=== PATIENT | female | born 1930 | race Asian ===

== ENCOUNTER 2016-10-17 19:00 | Emergency (ER) | payer OTHER ==
[2016-10-17 19:22] VITALS: TEMP 97.8; BMI 28.3
[2016-10-17 19:43] LABS: BASOPHIL 0.7 % (0-2.0); EOSINOPHIL 3.7 % (0-4.5); MCH 31.2 pg (25.7-33.7); MCHC 34.4 g/dl (32.0-36.0); MEAN CELL VOLUME 90.6 fl (80-96); MEAN PLT VOLUME 7.5 fl (7.5-11.1); NEUTROPHILS 65.1 % (42.8-82.8); PLATELET COUNT 183 K/MM3 (134-434)
--- NOTE | 2016-10-17 19:48 | PDOC ---
History of Present Illness - General Chief Complaint: Injury Stated Complaint: FALL Time Seen by Provider: 10/17/16 19:12 History Source: Patient, Spouse, Other (daughter) - History of Present Illness Occurred: reports: this afternoon (1330hrs) Pain Location: reports: head (right parietal), other (right rib) Modifying Factors: improves with: None Loss of Consciousness: no loss of consciousness Associated Symptoms (Fall): denies symptoms Past History - Travel Traveled outside of the country in the last 30 days: No Close contact w/someone who was outside of country & ill: No - Past Medical History Allergies/Adverse Reactions: Allergies Allergy/AdvReac Type Severity Reaction Status Date / Time Penicillins Allergy Intermediate Verified 10/17/16 19:22 Home Medications: Ambulatory Orders Fluoxetine HCl [Prozac -] 40 mg PO DAILY 03/29/13 Simvastatin [Zocor -] 20 mg PO HS 03/29/13 Pramipexole Dihydrochloride [Mirapex -] 1.5 mg PO Q4H 07/06/15 Sitagliptin Phosphate [Januvia] 50 mg PO DAILY 07/06/15 Alprazolam [Xanax] 0.5 mg PO PRN 04/29/16 Aspirin [ASA -] 81 mg PO DAILY 04/29/16 Donepezil HCl 5 mg PO DAILY 04/29/16 Metformin HCl 500 mg PO BID 04/29/16 Oxycodone HCl 5 mg PO Q6H PRN 04/29/16 Trazodone HCl [Desyrel -] 50 mg PO HS 04/29/16 Ranolazine [Ranexa -] 500 mg PO BID #60 tab 05/18/16 Metoprolol Succinate [Toprol XL -] 25 mg PO DAILY 10/17/16 Ramipril [Altace] 2.5 mg PO BID 10/17/16 Cardiac Disorders: Yes (Chest pain) CVA: (Non-ruptured cerebral aneurysm 2007, tension headaches) GI Disorders: Yes (GERD, COLONOSCOPY CONSTIPATION) HTN: Yes Hypercholesterolemia: Yes (HYPER LIPIDEMIA) Suicide Attempt (Hx): No - Surgical History Cardiac Surgery: Yes (Stent) Cholecystectomy: Yes - Immunization History Immunization Up to Date: Yes (FLU AND PNA) - Psycho/Social/Smoking Cessation Hx Anxiety: Yes Suicidal Ideation: No Smoking Status: No Smoking History: Never smoked Have you smoked in the past 12 months: No Number of Cigarettes Smoked Daily: 0 Information on smoking cessation initiated: No Hx Alcohol Use: No Drug/Substance Use Hx: No Substance Use Type: None Trauma Specific PMHX - Complaint Specific PMHX Back Injury: No Neck Injury: No Review of Systems - Review of Systems Able to Perform ROS?: Yes Comments:: 10/17/16 19:47 CONSTITUTIONAL: Absent: fever, chills, diaphoresis, generalized weakness, malaise, loss of appetite HEENT: Absent: rhinorrhea, nasal congestion, throat pain, throat swelling, difficulty swallowing, mouth swelling, ear pain, eye pain, visual Changes CARDIOVASCULAR: Absent: chest pain, loss of consciousness, palpitations, irregular heart rate, peripheral edema RESPIRATORY: Absent: cough, shortness of breath, dyspnea with exertion, orthopnea, wheezing, stridor, hemoptysis GASTROINTESTINAL: right lat lower ribs Absent: abdominal pain, abdominal distension, nausea, vomiting, diarrhea, constipation, melena, hematochezia GENITOURINARY: Absent: dysuria, frequency, urgency, hesitancy, hematuria, flank pain, genital pain MUSCULOSKELETAL: Absent: myalgia, arthralgia, joint swelling SKIN: Absent: rash, itching, pallor HEMATOLOGIC/IMMUNOLOGIC: Absent: easy bleeding, easy bruising, lymphadenopathy, frequent infections ENDOCRINE: Absent: unexplained weight gain, unexplained weight loss, heat intolerance, cold intolerance NEUROLOGIC: Right parietal quiñonez Absent: focal weakness or paresthesias, dizziness, seizure, mental status changes, bladder or bowel incontinence PSYCHIATRIC: Absent: anxiety, depression, suicidal or homicidal ideation, hallucinations. Is the patient limited Czech proficient: No *Physical Exam - Vital Signs Last Vital Signs Temp Pulse Resp BP Pulse Ox 97.8 F 64 18 181/71 100 10/17/16 19:18 10/17/16 19:18 10/17/16 19:18 10/17/16 19:18 10/17/16 19:18 - Physical Exam Comments: 10/17/16 19:48 GENERAL: Well developed, well nourished. Awake and alert. No acute distress. HEENT: Normocephalic, atraumatic. PERRLA, EOMI. No conjunctival pallor. Sclera are non- icteric. Moist mucous membranes. Oropharynx is clear. NECK: Supple. Full ROM. No JVD. Carotid pulses 2+ and symmetric, without bruits. No thyromegaly. No lymphadenopathy. CARDIOVASCULAR: Regular rate and rhythm. No murmurs, rubs, or gallops. Distal pulses are 2+ and symmetric. PULMONARY: No evidence of respiratory distress. Lungs clear to auscultation bilaterally. No wheezing, rales or rhonchi. ABDOMINAL: Soft. Non-tender. Non-distended. No rebound or guarding. No organomegaly. Normoactive bowel sounds. MUSCULOSKELETAL Normal range of motion at all joints. No bony deformities or tenderness. No CVA tenderness. EXTREMITIES: No cyanosis. No clubbing. No edema. No calf tenderness. SKIN: Warm and dry. Normal capillary refill. No rashes. No jaundice. NEUROLOGICAL: Alert, awake, appropriate. Cranial nerves 2-12 intact. No deficits to light touch and temperature in face, upper extremities and lower extremities. No motor deficits in the in face, upper extremities and lower extremities. Normoreflexic in the upper and lower extremities. Normal speech. Toes are down- going bilaterally. Gait is normal without ataxia. PSYCHIATRIC: Cooperative. Good eye contact. Appropriate mood and affect. ED Treatment Course - LABORATORY CBC & Chemistry Diagram: 10/17/16 19:29 10/17/16 19:29 Progress Note - Progress Note Progress Note: 85-year-old female presents to her emergency department with her family complaining of right parietal headache and right lateral lower rib pains after she slipped and fell 6 hours ago at home. Patient reports after getting up from the couch she was walking on carpeted floor and fell, striking her head on the wooden floor. Patient denies any loss of consciousness, dizziness, lightheadedness, visual disturbance, blurry vision, neck pains, neck pains, chest pain, shortness of breath, abdominal pains, urinary symptoms: Frequency/ urgency/hesitancy, hematuria, extremity numbness or tingling sensation. Patient' s daughter states she's been walking around for the past 6 hours after the fall. *DC/Admit/Observation/Transfer Diagnosis at time of Disposition: Closed head injury Qualifiers: Encounter type: initial encounter Qualified Code(s): S09.90XA - Unspecified injury of head, initial encounter Contusion of rib Qualifiers: Encounter type: initial encounter Laterality: right Qualified Code(s): S20.211A - Contusion of right front wall of thorax, initial encounter - Discharge Dispostion Disposition: HOME Condition at time of disposition: Stable - Referrals Referrals: STAFF,NOT ON [Primary Care Provider] - Nhan Cao MD [Staff Physician] - - Patient Instructions Printed Discharge Instructions: DI for Closed Head Injury, DI for Rib Contusion Additional Instructions: Increase fluids Take Tylenol as needed for pain Follow-up with your primary care physician this week Return back to the emergency department for any severe/persistent or worsening pain or discomfort.
[2016-10-17 19:59] LABS: INR 1.1 (0.82-1.09); PROTHROMBIN TIME (PATIENT) 12.1 SEC (9.98-11.88)
[2016-10-17 20:09] LABS: ALBUMIN 3.3 g/dl (3.4-5.0); ALK PHOS 83 U/L (45-117); ANION GAP 7 (8-16); BILIRUBIN,TOTAL 0.3 mg/dL (0.2-1.0); CALCIUM 8.8 mg/dL (8.5-10.1); CHOLESTEROL 173 mg/dL (50-200); CO2 31 mmol/L (21-32); CREATININE 0.6 mg/dL (0.55-1.02); GLUCOSE,RANDOM 144 mg/dL (74-106); LDL CHOLESTEROL (ONLY SJRH) 89 mg/dL (5-100); SGOT/AST 32 U/L (15-37); SGPT/ALT 25 U/L (12-78); TOT PROT 7.2 g/dl (6.4-8.2); TROPONIN I 0.02 ng/ml (0.00-0.05)
[2016-10-17] MEDS ORDERED: ACETAMINOPHEN 325 MG TABLET (FP) PO ONE (21:50)
[2016-10-17] MEDS ORDERED: ACETAMINOPHEN 325 MG TABLET (FP) ONE (21:53)
[2016-10-17 21:57] LABS: URINE APPEARANCE CLEAR; URINE BILIRUBIN NEGATIVE (NEGATIVE); URINE BLOOD NEGATIVE (NEGATIVE); URINE COLOR LTYELLOW; URINE GLUCOSE (UA) NEGATIVE (NEGATIVE); URINE KETONE NEGATIVE (NEGATIVE); URINE LEUK ESTERASE TRACE (NEGATIVE); URINE NITRITE NEGATIVE (NEGATIVE); URINE PROTEIN NEGATIVE (NEGATIVE); URINE UROBILINOGEN NEGATIVE E.U./dl (0.2-1.0)
[2016-10-17 22:06] VITALS: BP 156/80; PULSE 62
[2016-10-17 22:25] LABS: URINE RBC 1 /hpf (0-3); URINE WBC 11 /hpf (3-5)
--- NOTE | 2016-10-18 19:59 | EKG ---
Test Reason : Blood Pressure : / mmHG Vent. Rate : 060 BPM Atrial Rate : 060 BPM P-R Int : 204 ms QRS Dur : 140 ms QT Int : 516 ms P-R-T Axes : 000 032 088 degrees QTc Int : 516 ms AV dual-paced rhythm ABNORMAL ECG WHEN COMPARED WITH ECG OF 16-MAY-2016 21:14, NO SIGNIFICANT CHANGE WAS FOUND Confirmed by VINCENT VASQUEZ MD ([id number]) on 10/18/2016 7:58:38 PM Referred By: Confirmed By:VINCENT VASQUEZ MD
== END 2016-10-17 22:05 | disposition home or self-care (01) ==
LOC: JER 19:00 → SUPCPDRO 19:00 → JER 22:05
DX: S09.8XXA Other specified injuries of head, initial encounter (principal); G44.309 Post-traumatic headache, unspecified, not intractable; S20.211A Contusion of right front wall of thorax, initial encounter; W18.39XA Other fall on same level, initial encounter; Y93.01 Activity, walking, marching and hiking; Y92.038 Other place in apartment as the place of occurrence of the external cause; I25.10 Atherosclerotic heart disease of native coronary artery without angina pectoris; I10 Essential (primary) hypertension; Z95.5 Presence of coronary angioplasty implant and graft; E78.00 Pure hypercholesterolemia, unspecified; E78.5 Hyperlipidemia, unspecified
CPT/HCPCS: 36415; 70450-TC; 71010-TC; 71101-TC-RT; 80053; 81003; 81015; 82465; 82550; 82553; 83718; 83721; 84478; 84484; 85025; 85610; 86850; 86900; 86901; 93005; 93010; 99282-25

== ENCOUNTER 2016-12-12 15:00 | Emergency (ER) | payer OTHER ==
[2016-12-12 15:04] VITALS: TEMP 98; BMI 26.5
[2016-12-12 16:20] LABS: BASOPHIL 0.7 % (0-2.0); MCH 30.5 pg (25.7-33.7); MEAN CELL VOLUME 89.8 fl (80-96); MEAN PLT VOLUME 7.2 fl (7.5-11.1); NEUTROPHILS 58.6 % (42.8-82.8); PLATELET COUNT 162 K/MM3 (134-434); RDW 13.4 % (11.6-15.6); WHITE BLOOD COUNT 5.3 K/mm3 (4.0-10.0)
[2016-12-12 16:36] LABS: INR 1.15 (0.82-1.09); PROTHROMBIN TIME (PATIENT) 12.7 SEC (9.98-11.88)
[2016-12-12 16:44] LABS: ALBUMIN 3.4 g/dl (3.4-5.0); ANION GAP 10 (8-16); CALCIUM 8.9 mg/dL (8.5-10.1); CO2 28 mmol/L (21-32); COCKROFT - GAULT 62.1095; CREATININE 0.7 mg/dL (0.55-1.02); GLUCOSE,RANDOM 215 mg/dL (74-106); MAGNESIUM 1.7 mg/dL (1.8-2.4); SGOT/AST 16 U/L (15-37); SGPT/ALT 17 U/L (12-78)
[2016-12-12 16:48] LABS: ALK PHOS 67 U/L (45-117); BILIRUBIN,TOTAL 0.3 mg/dL (0.2-1.0); TOT PROT 7.2 g/dl (6.4-8.2); TROPONIN I < 0.02 ng/ml (0.00-0.05)
--- NOTE | 2016-12-12 17:12 | PDOC ---
History of Present Illness - General Chief Complaint: Palpitations Stated Complaint: DIFF BREATHING/PALPITATIONS Time Seen by Provider: 12/12/16 15:49 - History of Present Illness Initial Comments: 12/12/16 17:06 CHIEF COMPLAINT: palpitations, SOB HISTORY OF PRESENT ILLNESS: 86 yo F with hx of cerebral aneurysm (non ruptured 2006), s/p stents and pacemaker, NIDDM, GERD, HTN , HLD, anxiety, Parkinsons, s/ p cholecystectomy presents to ED with palpitations and SOB this morning. She denies any chest pain, cough, fever, chills, nausea, vomiting, diarrhea, or urinary symptoms. No recent travel or sick contacts. PAST MEDICAL HISTORY: as per HPI FAMILY HISTORY: Denies SOCIAL HISTORY: Denies tobacco, alcohol, illicit drug use. SURGICAL HISTORY: Denies ALLERGIES: PCN REVIEW OF SYSTEMS General/Constitutional: Denies fever or chills. Denies weakness, weight change. HEENT: Denies change in vision. Denies ear pain or discharge. Denies sore throat. Cardiovascular: Palpitations earlier today, none now. Denies chest pain or shortness of breath. Respiratory: SOB. Denies cough, wheezing, or hemoptysis. Gastrointestinal: Denies nausea, vomiting, diarrhea or constipation. Denies rectal bleeding. Genitourinary: Denies dysuria, frequency, or change in urination. Musculoskeletal: Denies joint or muscle swelling or pain. Denies neck or back pain. Skin and breasts: Denies rash or easy bruising. Neurologic: Denies headache, vertigo, loss of consciousness, or loss of sensation. PHYSICAL EXAM General Appearance: Well-appearing, appropriately dressed. No apparent distress. HEENT: EOMI, PERRLA, normal ENT inspection, normal voice, TMs normal, pharynx normal. No conjunctival pallor. No photophobia, scleral icterus. Neck: Supple. Trachea midline. No tenderness, rigidity, carotid bruit, stridor , lymphadenopathy, or thyromegaly. Respiratory/Chest: Lungs CTAB. No shortness of breath, chest tenderness, respiratory distress, accessory muscle use. No crackles, rales, rhonchi, stridor , wheezing, dullness Cardiovascular: RRR. S1, S2. No JVD, murmur, bradycardia, tachycardia. Vascular Pulses: Dorsalis-Pedis (R): 2+, Dorsalis-Pedis (L): 2+ Gastrointestinal/Abdominal: Normal bowel sounds. Abdomen soft, non-distended. No tenderness or rebound tenderness. No organomegaly, pulsatile mass, guarding , hernia, hepatomegaly, splenomegaly. Musculoskeletal/Extremities: Normal inspection. FROM of all extremities, normal capillary refill. Pelvis Stable. No CVA tenderness. No tenderness to extremities, pedal edema, swelling, erythema or deformity. Integumentary: Appropriate color, dry, warm. No cyanosis, erythema, jaundice or rash Neurologic: measurement superintendent II-XII intact. Fully oriented, alert. Appropriate mood/affect. Motor strength 5/5. No appreciable EOM palsy, facial droop or sensory deficit. 12/12/16 17:35 12/12/16 17:36 12/12/16 17:41 Past History - Past Medical History Allergies/Adverse Reactions: Allergies Allergy/AdvReac Type Severity Reaction Status Date / Time Penicillins Allergy Intermediate Verified 12/12/16 15:01 Home Medications: Ambulatory Orders Fluoxetine HCl [Prozac -] 40 mg PO DAILY 03/29/13 Simvastatin [Zocor -] 20 mg PO HS 03/29/13 Pramipexole Dihydrochloride [Mirapex -] 1.5 mg PO Q4H 07/06/15 Sitagliptin Phosphate [Januvia] 50 mg PO DAILY 07/06/15 Alprazolam [Xanax] 0.5 mg PO PRN PRN 04/29/16 Aspirin [ASA -] 81 mg PO DAILY 04/29/16 Donepezil HCl 5 mg PO DAILY 04/29/16 Metformin HCl 500 mg PO BID 04/29/16 Oxycodone HCl 5 mg PO Q6H PRN 04/29/16 Trazodone HCl [Desyrel -] 50 mg PO HS 04/29/16 Ranolazine [Ranexa -] 500 mg PO BID #60 tab 05/18/16 Metoprolol Succinate [Toprol XL -] 25 mg PO DAILY 10/17/16 Bisacodyl [Dulcolax] 5 mg PO PRN 12/12/16 Esomeprazole Mag Trihydrate [Nexium Packets] 40 mg PO PRN PRN 12/12/16 Mirtazapine [Remeron -] 15 mg PO HS 12/12/16 Cardiac Disorders: Yes (Chest pain) CVA: (Non-ruptured cerebral aneurysm 2006, tension headaches) GI Disorders: Yes (GERD, COLONOSCOPY CONSTIPATION) HTN: Yes Hypercholesterolemia: Yes Suicide Attempt (Hx): No - Surgical History Abdominal Surgery: Yes Cardiac Surgery: Yes (Stent, PM.) Cholecystectomy: Yes - Immunization History Immunization Up to Date: Yes (FLU AND PNA) - Psycho/Social/Smoking Cessation Hx Anxiety: No Suicidal Ideation: No Smoking Status: No Smoking History: Never smoked Have you smoked in the past 12 months: No Number of Cigarettes Smoked Daily: 0 Hx Alcohol Use: No Drug/Substance Use Hx: No Substance Use Type: None *Physical Exam - Vital Signs Last Vital Signs Temp Pulse Resp BP Pulse Ox 98 F 63 19 186/82 95 12/12/16 15:01 12/12/16 18:29 12/12/16 18:29 12/12/16 18:29 12/12/16 18:29 Heart Score/ECG Review - History History: Moderately suspicious - Electrocardiogram EKG: Non specific repolarization disturbance - Age Age: >/= 65 - Risk Factors Risk Factors Heart Score: Yes Hx Hypercholesterolemia, Yes Hx Hypertension, Yes Hx Diabetes Based on the list above the patient has:: >/=3 risk factors or Hx atherosclerotic disease - Troponin Troponin: </= normal limit - Score Heart Score - Total: 6 ED Treatment Course - LABORATORY CBC & Chemistry Diagram: 12/12/16 16:05 12/12/16 16:05 - ADDITIONAL ORDERS Additional order review: 12/12/16 16:05 RBC 4.56 MCV 89.8 MCHC 34.0 RDW 13.4 MPV 7.2 L Neutrophils % 58.6 Lymphocytes % 29.4 D Monocytes % 6.3 Eosinophils % 5.0 H Basophils % 0.7 - Medications Given in the ED: ED Medications Discontinued Medications Generic Name Dose Route Start Last Admin Trade Name Freq PRN Reason Stop Dose Admin Sodium Chloride 1,000 ml 12/12/16 17:26 12/12/16 17:40 Normal Saline - IV 12/12/16 17:27 1,000 ml ONCE ONE Administration Medical Decision Making - Medical Decision Making 12/12/16 17:41 86 yo F with hx of cerebral aneurysm (non ruptured 2006), s/p stents and pacemaker, NIDDM, GERD, HTN , HLD, anxiety, Parkinsons, s/p cholecystectomy presents to ED with palpitations and SOB this morning. -EKG, CXR -CBC, CMP, Mg, PT/INR, cardiac profile -O2 EKG unchanged from prior. No acute findings on CXR. Patient requests to leave. Given patient's significant cardiac history, advised patient and daughter to stay for observation and further evaluation of SOB. Patient refuses to stay and signed out AMA. *DC/Admit/Observation/Transfer Diagnosis at time of Disposition: AMA - Signed out against medical advice - Discharge Dispostion Disposition: AGAINST MEDICAL ADVICE Condition at time of disposition: Good - Referrals Referrals: Carlos Sepulveda [Primary Care Provider] -
[2016-12-12] MEDS ORDERED: SODIUM CHLORIDE 0.9% 1000 ML INFUS.BAG IV ONE (17:26)
--- NOTE | 2016-12-12 18:14 | PDOC ---
*Physical Exam - Vital Signs Last Vital Signs Temp Pulse Resp BP Pulse Ox 98 F 65 18 146/74 95 12/12/16 15:01 12/12/16 15:01 12/12/16 15:01 12/12/16 15:01 12/12/16 15:01 ED Treatment Course - LABORATORY CBC & Chemistry Diagram: 12/12/16 16:05 12/12/16 16:05 - ADDITIONAL ORDERS Additional order review: Laboratory Results 12/12/16 12/12/16 16:05 16:05 INR 1.15 H Sodium 135 L Potassium 4.2 Chloride 97 L Carbon Dioxide 28 Anion Gap 10 BUN 14 D Creatinine 0.7 Creat Clearance w eGFR > 60 Random Glucose 215 H D Calcium 8.9 Magnesium 1.7 L Total Bilirubin 0.3 AST 16 D ALT 17 D Alkaline Phosphatase 67 Creatine Kinase 47 Troponin I < 0.02 Total Protein 7.2 Albumin 3.4 12/12/16 16:05 RBC 4.56 MCV 89.8 MCHC 34.0 RDW 13.4 MPV 7.2 L Neutrophils % 58.6 Lymphocytes % 29.4 D Monocytes % 6.3 Eosinophils % 5.0 H Basophils % 0.7 - Medications Given in the ED: ED Medications Discontinued Medications Generic Name Dose Route Start Last Admin Trade Name Freq PRN Reason Stop Dose Admin Sodium Chloride 1,000 ml 12/12/16 17:26 12/12/16 17:40 Normal Saline - IV 12/12/16 17:27 1,000 ml ONCE ONE Administration Medical Decision Making - Medical Decision Making 12/12/16 18:11 86 yo F h/o cerebral aneurysm pt presents to the ER with a complaint of palpitations and shortness of breath No fevers or chills No chest pain 12/12/16 18:12 12/12/16 18:13 Laboratory Tests 12/12/16 12/12/16 16:05 16:05 WBC 5.3 Hgb 13.9 Hct 41.0 BUN 14 D Creatinine 0.7 Creatine Kinase 47 Troponin I < 0.02 CXR: no consolidation, no effusion, Would like to place this patient on observation Pt refusing to stay on observation she is leaving the ER AMA this was discussed with her by JOANA Vaz in front of her daughter clinical impression: palpitations *DC/Admit/Observation/Transfer Diagnosis at time of Disposition: AMA - Signed out against medical advice - Discharge Dispostion Disposition: AGAINST MEDICAL ADVICE Condition at time of disposition: Good - Referrals Referrals: Carlos Sepulveda [Primary Care Provider] - - Patient Instructions - Post Discharge Activity
[2016-12-12 18:30] VITALS: BP 186/82; PULSE 63
--- NOTE | 2016-12-14 00:07 | EKG ---
Test Reason : Blood Pressure : / mmHG Vent. Rate : 066 BPM Atrial Rate : 066 BPM P-R Int : 162 ms QRS Dur : 148 ms QT Int : 500 ms P-R-T Axes : 071 044 080 degrees QTc Int : 524 ms Atrial-sensed ventricular-paced rhythm ABNORMAL ECG WHEN COMPARED WITH ECG OF 17-OCT-2016 21:26, VENT. RATE HAS INCREASED BY 6 BPM Confirmed by STEVE SONI MD ([id number]) on 12/14/2016 12:06:51 AM Referred By: Confirmed By:STEVE SONI MD
== END 2016-12-12 18:30 | disposition left against medical advice (07) ==
LOC: SUPCPDRO 15:00 → JER 15:00
DX: R00.2 Palpitations (principal); E11.9 Type 2 diabetes mellitus without complications; Z79.84 Long term (current) use of oral hypoglycemic drugs; E78.00 Pure hypercholesterolemia, unspecified; I25.10 Atherosclerotic heart disease of native coronary artery without angina pectoris; I10 Essential (primary) hypertension; Z95.5 Presence of coronary angioplasty implant and graft; Z95.0 Presence of cardiac pacemaker; K21.9 Gastro-esophageal reflux disease without esophagitis; G20 Parkinson's disease; I67.1 Cerebral aneurysm, nonruptured
CPT/HCPCS: 36415; 71020-TC; 80053; 82550; 83735; 84484; 85025; 85610; 93005; 93010; 99284-25

== ENCOUNTER 2017-06-24 13:01 | Observation (INO) | payer OTHER ==
--- NOTE | 2017-06-24 14:21 | PDOC ---
History of Present Illness - History of Present Illness Initial Comments: 06/24/17 14:41 The patient is a 86 year old female, with a significant past medical history of cerebral aneurysm (nonruptured 2006), s/p stents and pacemaker, NIDDM, GERD, HTN , HLD, anxiety, Parkinson's, s/p cholecystectomy, who presents to the emergency department with 10 day complaint of generalized weakness, fatigue, intermittent diaphoresis, and mild nausea. The patient states she has been unable to get good rest because she feels sick. She reports seeing her PMD, Dr. Sepulveda, a week ago for similar symptoms, however, states she feels much worse today than the previous few days. She reports feeling feverish, but denies fever. She reports feeling intermittently sweaty. She denies recent sick contacts. She denies chest pain, shortness of breath, headache and dizziness. She denies fever, chills, vomit, diarrhea and constipation. She denies dysuria, frequency, urgency and hematuria. Allergies: penicillins Past surgical history: cholecystectomy, pacemaker. Social history: denies toxic habits, lives with son and [id number] PCP: Dr. Sepulveda <Breann Anaya - Last Filed: 06/24/17 18:17> <Darion Sosa - Last Filed: 06/24/17 19:04> - General Chief Complaint: Shortness of Breath Stated Complaint: Shortness of Breath Time Seen by Provider: 06/24/17 13:16 Past History <Breann Anaya - Last Filed: 06/24/17 18:17> - Past Medical History Cardiac Disorders: Yes (Chest pain) CVA: (Non-ruptured cerebral aneurysm 2007, tension headaches) COPD: No Diabetes: Yes GI Disorders: Yes (GERD, COLONOSCOPY CONSTIPATION) HTN: Yes Hypercholesterolemia: Yes - Surgical History Abdominal Surgery: Yes Cardiac Surgery: Yes (Stent, PM.) Cholecystectomy: Yes - Immunization History Immunization Up to Date: Yes (FLU AND PNA) - Suicide/Smoking/Psychosocial Hx Smoking Status: No Smoking History: Never smoked Have you smoked in the past 12 months: No Number of Cigarettes Smoked Daily: 0 Hx Alcohol Use: No Drug/Substance Use Hx: No Substance Use Type: None <Darion Sosa - Last Filed: 06/24/17 19:04> - Past Medical History Allergies/Adverse Reactions: Allergies Allergy/AdvReac Type Severity Reaction Status Date / Time Penicillins Allergy Intermediate Verified 12/12/16 15:01 Home Medications: Ambulatory Orders Fluoxetine HCl [Prozac -] 40 mg PO DAILY 03/29/13 Simvastatin [Zocor -] 20 mg PO HS 03/29/13 Pramipexole Dihydrochloride [Mirapex -] 1.5 mg PO Q4H 07/06/15 Sitagliptin Phosphate [Januvia] 50 mg PO DAILY 07/06/15 Alprazolam [Xanax] 0.5 mg PO PRN PRN 04/29/16 Aspirin [ASA -] 81 mg PO DAILY 04/29/16 Donepezil HCl 5 mg PO DAILY 04/29/16 Metformin HCl 500 mg PO BID 04/29/16 Oxycodone HCl 5 mg PO Q6H PRN 04/29/16 Ranolazine [Ranexa -] 500 mg PO BID #60 tab 05/18/16 Metoprolol Succinate [Toprol XL -] 25 mg PO DAILY 10/17/16 Bisacodyl [Dulcolax] 5 mg PO PRN 12/12/16 Esomeprazole Mag Trihydrate [Nexium Packets] 40 mg PO PRN PRN 12/12/16 Mirtazapine [Remeron -] 15 mg PO HS 12/12/16 Review of Systems - Review of Systems Constitutional: No: Chills, Fever Respiratory: Yes: Cough. No: Shortness of Breath Cardiac (ROS): Yes: Lightheadedness. No: Chest Pain, Edema, Syncope ABD/GI: Yes: Nausea. No: Diarrhea, Vomiting : No: Dysuria, Frequency Neurological: No: Headache All Other Systems: Reviewed and Negative <Darion Sosa - Last Filed: 06/24/17 19:04> *Physical Exam - Vital Signs Last Vital Signs Temp Pulse Resp BP Pulse Ox 97.5 F L 69 18 151/67 95 06/24/17 13:18 06/24/17 13:18 06/24/17 13:18 06/24/17 13:18 06/24/17 13:50 - Physical Exam Comments: 06/24/17 14:42 GENERAL: The patient is awake, alert, and fully oriented, in no acute distress. HEAD: Normal with no signs of trauma. EYES: Pupils equal, round and reactive to light, extraocular movements intact, sclera anicteric, conjunctiva clear with no pallor. ENT: Ears normal, nares patent, oropharynx clear without exudates. Moist mucous membranes. NECK: Normal range of motion, supple without lymphadenopathy, JVD, or masses. LUNGS: Breath sounds equal, clear to auscultation bilaterally. No wheeze/ crackles. HEART: (+) 2/6 systolic ejection murmur. Regular rate and rhythm, normal S1 and S2 without rub. ABDOMEN: (+) suprapubic discomfort on palpation. Soft/nondistended. BS wnl. No guarding or rebound. No palpable masses. No hepatosplenomegaly. EXTREMITIES: Normal range of motion, no edema. No clubbing or cyanosis. No cords, erythema, or tenderness. NEUROLOGICAL: Cranial nerves II through XII grossly intact. Normal speech, normal gait. PSYCH: Normal mood, normal affect. SKIN: Warm, Dry, normal turgor, no rashes or lesions noted. <Breann Anaya - Last Filed: 06/24/17 18:17> - Vital Signs Last Vital Signs Temp Pulse Resp BP Pulse Ox 97.5 F L 69 18 151/67 95 06/24/17 13:18 06/24/17 13:18 06/24/17 13:18 06/24/17 13:18 06/24/17 13:50 <Darion Sosa - Last Filed: 06/24/17 19:04> Heart Score/ECG Review - ECG Intrepretation Comment:: 06/24/17 14:49 EKG was read by Dr. Sosa at 14:35 Impression: AV paced rhythm at 66 bpm. unchanged compared to EKG from 10/17/16. <Breann Anaya - Last Filed: 06/24/17 18:17> ED Treatment Course - LABORATORY CBC & Chemistry Diagram: 06/24/17 14:18 06/24/17 14:18 - ADDITIONAL ORDERS Additional order review: Laboratory Results 06/24/17 14:18 Magnesium Cancelled Creatine Kinase Cancelled Troponin I Cancelled B-Natriuretic Peptide Cancelled 06/24/17 14:18 RBC 4.45 MCV 90.0 MCHC 34.3 RDW 13.7 MPV 7.1 L Neutrophils % 61.0 Lymphocytes % 27.7 Monocytes % 7.0 Eosinophils % 3.5 Basophils % 0.8 - RADIOLOGY Radiograph Interpretation: EXAM#: TYPE/EXAM: RESULT: [id number] RAD/CHEST X-RAY PORTABLE* HISTORY PROVIDED: Wheezing. A single frontal portable projection of the chest at 1:53 PM is submitted. The study is limited due to patient rotation. The heart size is enlarged. A dual-chamber left-sided pacemaker is present. There are some increased interstitial markings diffusely suspicious for a mild degree of acute congestion. There may be a small amount of right pleural fluid as well. IMPRESSION: Probable mild congestion Reported By: Bart Dong MD 06/24/17 4025 <Breann Anaya - Last Filed: 06/24/17 18:17> - LABORATORY CBC & Chemistry Diagram: 06/24/17 14:18 06/24/17 14:18 - RADIOLOGY Radiology Studies Ordered: Category Date Time Status CHEST X-RAY PORTABLE* [RAD] Stat Radiology 06/24/17 13:50 Ordered <Darion Sosa - Last Filed: 06/24/17 19:04> Medical Decision Making - Medical Decision Making 06/24/17 14:31 A portion of this note was documented by scribe services under my direction. I have reviewed the details of the note, within reason, and agree with the documentation with the following case summary and management plan written by me. 86-year-old female with history of hypertension, diabetes, high cholesterol, heart disease status post pacemaker presents with 10 days of feeling generally unwell, worsened today. No specific complaints of headache or URI symptoms, slight cough with nausea but no vomiting or diarrhea, baseline constipation, no urinary complaints, no focal neurological complaints. Subjective fevers but no measured fevers, some chills and body aches. Today, patient expressed concern that she was feeling more unwell so they present to the emergency department. Vital signs as noted and within normal limits Generally well-appearing, seated in stretcher speaking full sentences Atraumatic Lungs are clear, heart is regular with systolic murmur Mild suprapubic discomfort Neurologically intact 86-year-old female with generalized weakness for over 1 week, apparently worsened today. Question infectious process, rule out influenza or UTI, has cardiac history so rule out acute process, rule out metabolic disarray. Labs, urinalysis EKG, chest x-ray IV fluids, check influenza Reassess 06/24/17 15:57 Elevated lactate 2.4, began IV fluids resuscitation. Otherwise no leukocytosis and normal differential, chemistries are within normal limits, troponin is negative. Awaiting chest x-ray read, awaiting urinalysis. Will observe in hospital given the elevated lactate. 06/24/17 19:04 UA negative. Repeat lactate remains 2.1 after 1L NS. Will proceed with obs placement. Signout given to PRODUCT MG[employer] DEV MANAGER [employer]. 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
[2017-06-24 14:26] LABS: BASOPHIL 0.8 % (0-2.0); EOSINOPHIL 3.5 % (0-4.5); MCH 30.8 pg (25.7-33.7); MCHC 34.3 g/dl (32.0-36.0); MEAN PLT VOLUME 7.1 fl (7.5-11.1); PLATELET COUNT 181 K/MM3 (134-434); RDW 13.7 % (11.6-15.6); WHITE BLOOD COUNT 6.7 K/mm3 (4.0-10.0)
[2017-06-24 14:53] LABS: ALBUMIN 3.5 g/dl (3.4-5.0); ANION GAP 14 (8-16); BILIRUBIN,TOTAL 0.3 mg/dL (0.2-1.0); CALCIUM 8.8 mg/dL (8.5-10.1); CO2 23 mmol/L (21-32); CREATININE 0.8 mg/dL (0.55-1.02); GLUCOSE,RANDOM 270 mg/dL (74-106); SGPT/ALT 26 U/L (12-78); TOT PROT 7.2 g/dl (6.4-8.2)
[2017-06-24 14:55] LABS: ALK PHOS 74 U/L (45-117); CPK 72 IU/L (26-192); TROPONIN I < 0.02 ng/ml (0.00-0.05)
[2017-06-24] MEDS ORDERED: SODIUM CHLORIDE 500 ML IV ONE (15:07)
[2017-06-24 15:36] LABS: MAGNESIUM 1.8 mg/dL (1.8-2.4); SGOT/AST 25 U/L (15-37)
--- NOTE | 2017-06-24 16:30 | EKG ---
Test Reason : Blood Pressure : / mmHG Vent. Rate : 066 BPM Atrial Rate : 066 BPM P-R Int : 174 ms QRS Dur : 142 ms QT Int : 512 ms P-R-T Axes : -11 022 072 degrees QTc Int : 536 ms Atrial-sensed ventricular-paced rhythm ABNORMAL ECG WHEN COMPARED WITH ECG OF 12-DEC-2016 15:14, NO SIGNIFICANT CHANGE WAS FOUND Confirmed by STEVE SONI MD ([id number]) on 06/24/2017 4:29:33 PM Referred By: Confirmed By:STEVE SONI MD
[2017-06-24] MEDS ORDERED: SODIUM CHLORIDE 500 ML IV STA (16:49)
[2017-06-24 17:05] LABS: URINE APPEARANCE SLCLOUDY; URINE BILIRUBIN NEGATIVE (NEGATIVE); URINE BLOOD NEGATIVE (NEGATIVE); URINE COLOR YELLOW; URINE GLUCOSE (UA) 3+ (NEGATIVE); URINE KETONE NEGATIVE (NEGATIVE); URINE NITRITE NEGATIVE (NEGATIVE); URINE PROTEIN NEGATIVE (NEGATIVE); URINE UROBILINOGEN NEGATIVE mg/dL (0.2-1.0)
[2017-06-24] MEDS ORDERED: METOPROLOL TARTRATE 25 MG TABLET (FP) PO ONE (18:12)
[2017-06-24] MEDS ORDERED: ALPRAZolam 0.25 MG TABLET PO PRN (20:58)
[2017-06-24] MEDS ORDERED: BISACODYL 5 MG TABLET.DR (FP) PO PRN (21:00)
--- NOTE | 2017-06-24 21:01 | HP ---
CHIEF COMPLAINT: GENERALIZED MALAISE PCP: C[facility] HISTORY OF PRESENT ILLNESS: This is an 86 year old female with a significant past medical history of HTN, CAD s/p stents, NIDDM, Anxiety, Parkinson's disease who presented to the ED with a complaint of not feeling well. Reports subjective fever and chills. Denies specific pain. + intermittent nausea, no vomiting. Last BM was today; small and hard. ER course was notable for: (1) WBC 6.7 (2) BNP 590.26, CXR with mild congestion (3) lactic acid 2.4 --> 2.1 Recent Travel: pt denies PAST MEDICAL HISTORY: cerebral aneurysm HTN HLD CAD s/p stents NIDDM GERD anxiety PD PAST SURGICAL HISTORY: cholecystectomy PPM Social History: Smoking: pt denies Alcohol: pt denies Drugs: pt denies Family History: unknown Allergies Penicillins Allergy (Intermediate, Verified 12/12/16 15:01) HOME MEDICATIONS: 3 Medication Instructions Recorded Fluoxetine HCl [Prozac -] 40 mg PO DAILY 03/29/13 Simvastatin [Zocor -] 20 mg PO HS 03/29/13 Pramipexole Dihydrochloride 1.5 mg PO Q4H 07/06/15 [Mirapex -] Sitagliptin Phosphate [Januvia] 50 mg PO DAILY 07/06/15 Alprazolam [Xanax] 0.5 mg PO PRN PRN 04/29/16 Aspirin [ASA -] 81 mg PO DAILY 04/29/16 Donepezil HCl 5 mg PO DAILY 04/29/16 Metformin HCl 500 mg PO BID 04/29/16 Oxycodone HCl 5 mg PO Q6H PRN 04/29/16 Ranolazine [Ranexa -] 500 mg PO BID #60 tab 05/18/16 Metoprolol Succinate [Toprol XL -] 25 mg PO DAILY 10/17/16 Bisacodyl [Dulcolax] 5 mg PO PRN 12/12/16 Esomeprazole Mag Trihydrate 40 mg PO PRN PRN 12/12/16 [Nexium Packets] Mirtazapine [Remeron -] 15 mg PO HS 12/12/16 REVIEW OF SYSTEMS CONSTITUTIONAL: Present: fever, chills, generalized weakness, malaise Absent: diaphoresis, loss of appetite, weight change HEENT: Absent: rhinorrhea, nasal congestion, throat pain, throat swelling, difficulty swallowing, mouth swelling, ear pain, eye pain, visual changes CARDIOVASCULAR: Absent: chest pain, syncope, palpitations, irregular heart rate, lightheadedness , peripheral edema RESPIRATORY: Absent: cough, shortness of breath, dyspnea with exertion, orthopnea, wheezing, stridor, hemoptysis GASTROINTESTINAL: Present: nausea Absent: abdominal pain, abdominal distension, vomiting, diarrhea, constipation, melena, hematochezia GENITOURINARY: Absent: dysuria, frequency, urgency, hesitancy, hematuria, flank pain, genital pain MUSCULOSKELETAL: Absent: myalgia, arthralgia, joint swelling, back pain, neck pain SKIN: Absent: rash, itching, pallor HEMATOLOGIC/IMMUNOLOGIC: Absent: easy bleeding, easy bruising, lymphadenopathy, frequent infections ENDOCRINE: Absent: unexplained weight gain, unexplained weight loss, heat intolerance, cold intolerance NEUROLOGIC: Absent: headache, focal weakness or paresthesias, dizziness, unsteady gait, seizure, mental status changes, bladder or bowel incontinence PSYCHIATRIC: Absent: anxiety, depression, suicidal or homicidal ideation, hallucinations. PHYSICAL EXAMINATION Vital Signs - 24 hr 3 06/24/17 06/24/17 06/24/17 13:18 13:50 15:32 18:10 Temperature 97.5 F L 97.5 F L 98.2 F Pulse Rate 69 Pulse Rate [ 69 69 Apical] Respiratory 18 18 18 Rate Blood Pressure 151/67 Blood Pressure 157/82 183/82 [Left Arm] O2 Sat by Pulse 97 95 97 97 Oximetry (%) GENERAL: Awake, alert, and fully oriented, mildly anxious. HEAD: Normal with no signs of trauma. EYES: Pupils equal, round and reactive to light, extraocular movements intact, sclera anicteric, conjunctiva clear. No lid lag. EARS, NOSE, THROAT: Ears normal, nares patent, oropharynx clear without exudates. Moist mucous membranes. NECK: Normal range of motion, supple without lymphadenopathy, JVD, or masses. LUNGS: Breath sounds equal, clear to auscultation bilaterally. No wheezes, and no crackles. No accessory muscle use. HEART: Regular rate and rhythm, normal S1 and S2 without murmur, rub or gallop. ABDOMEN: Soft, nontender, not distended, normoactive bowel sounds, no guarding, no rebound, no masses. No hepatomegaly or splenomegaly. MUSCULOSKELETAL: Normal range of motion at all joints. No bony deformities or tenderness. No CVA tenderness. UPPER EXTREMITIES: 2+ pulses, warm, well-perfused. No cyanosis. No clubbing. No peripheral edema. LOWER EXTREMITIES: 2+ pulses, warm, well-perfused. No calf tenderness. No peripheral edema. NEUROLOGICAL: Cranial nerves II-XII intact. Normal speech. Normal gait. PSYCHIATRIC: Cooperative. Good eye contact. Appropriate mood and affect. SKIN: Warm, dry, normal turgor, no rashes or lesions noted, normal capillary refill. Laboratory Results - last 24 hr 3 06/24/17 06/24/17 06/24/17 14:18 14:18 14:18 WBC 6.7 RBC 4.45 Hgb 13.7 Hct 40.0 MCV 90.0 MCH 30.8 MCHC 34.3 RDW 13.7 Plt Count 181 MPV 7.1 L Neutrophils % 61.0 Lymphocytes % 27.7 Monocytes % 7.0 Eosinophils % 3.5 Basophils % 0.8 Sodium Potassium Chloride Carbon Dioxide Anion Gap BUN Creatinine Creat Clearance w eGFR Random Glucose Lactic Acid 2.4 H* Calcium Magnesium Cancelled Total Bilirubin AST ALT Alkaline Phosphatase Creatine Kinase Cancelled Troponin I Cancelled B-Natriuretic Peptide Cancelled Total Protein Albumin Urine Color Urine Appearance Urine pH Ur Specific [place] Urine Protein Urine Glucose (UA) Urine Ketones Urine Blood Urine Nitrite Urine Bilirubin Urine Urobilinogen 3 06/24/17 06/24/17 06/24/17 14:18 16:30 17:35 WBC RBC Hgb Hct MCV MCH MCHC RDW Plt Count MPV Neutrophils % Lymphocytes % Monocytes % Eosinophils % Basophils % Sodium 134 L Potassium 4.4 Chloride 97 L Carbon Dioxide 23 Anion Gap 14 BUN 11 D Creatinine 0.8 Creat Clearance w eGFR > 60 Random Glucose 270 H D Lactic Acid 2.1 H* Calcium 8.8 Magnesium 1.8 Total Bilirubin 0.3 AST 25 D ALT 26 D Alkaline Phosphatase 74 Creatine Kinase 72 Troponin I < 0.02 B-Natriuretic Peptide 590.26 H Total Protein 7.2 Albumin 3.5 Urine Color Yellow Urine Appearance Slcloudy Urine pH 5.0 D Ur Specific [place] 1.022 Urine Protein Negative Urine Glucose (UA) 3+ H Urine Ketones Negative Urine Blood Negative Urine Nitrite Negative Urine Bilirubin Negative Urine Urobilinogen Negative CXR cardiomegaly probable mild congestion ECG Atrial-sensed ventricular-paced rhythm Vent rate 66 QTC 536 ABNORMAL ECG WHEN COMPARED WITH ECG OF 12-DEC-2016 15:14, NO SIGNIFICANT CHANGE WAS FOUND ASSESSMENT/PLAN: 86yF with PMH cerebral aneurysm, HTN, HLD, CAD s/p stents, NIDDM, Parkinson's disease, GERD, anxiety presented to the ED with generalized weakness, malaise. She was found to have elevated lactic acid and was admitted for same. Lactic acidosis - likely type B due to metformin - hold metformin, repeat in AM - hold further fluids given CXR report and pt appears euvolemic Constipation - start miralax daily - FUA in am if no BM HTN/HLD/CAD - cont home meds: ASA, toprol, ranexa, zocor changed to formulary lipitor dementia with depression and anxiety - cont aricept, prozac, remeron and xanax Parkinson's disease - cont mirapex DVT PPX - chemoprophylaxis not indicated as expected LOS <48h FEN - tolerating po - bmp in am - diabetic/low sodium diet as ordered. Dispo: Pt currently requires inpatient observation for management of her emergent condition. Visit type - Emergency Visit Emergency Visit: Yes ED Registration Date: 06/24/17 Care time: The patient presented to the Emergency Department on the above date and was hospitalized for further evaluation of their emergent condition. - New Patient This patient is new to me today: Yes Date on this admission: 06/24/17 - Critical Care Critical Care patient: No
[2017-06-24] MEDS: RANOLAZINE E.R. 500 MG TABLET (FP) PO SCH (21:20)
[2017-06-24 21:24] LABS: URINE LEUK ESTERASE Negative (NEGATIVE)
[2017-06-24] MEDS ORDERED: MIRTAZAPINE 15 MG TABLET (FP) PO SCH (22:00)
[2017-06-24] MEDS ORDERED: ATORVASTATIN CA 10 MG TABLET (FP) PO SCH (22:00)
[2017-06-24] MEDS ORDERED: POLYETHYLENE GLYCOL 3350 119 GM BTL PO SCH (22:00)
[2017-06-24] MEDS: PRAMIPEXOLE DIHYDROCHLORIDE 1.5 MG TABLET PO SCH (22:04)
[2017-06-24] MEDS: INSULIN SLIDING SCALE (NOVOLOG) 1 VIAL SQ SCH (22:06)
[2017-06-25 05:04] VITALS: BMI 30.9
[2017-06-25] MEDS: PRAMIPEXOLE DIHYDROCHLORIDE 1.5 MG TABLET PO SCH ×3 (05:51→14:15)
[2017-06-25] MEDS: INSULIN SLIDING SCALE (NOVOLOG) 1 VIAL SQ SCH ×2 (06:02→11:49)
[2017-06-25] MEDS ORDERED: sitaGLIPtin PHOSPHATE 50 MG TABLET PO SCH (07:00)
[2017-06-25 07:42] LABS: BASOPHIL 0.8 % (0-2.0); EOSINOPHIL 4.2 % (0-4.5); MCH 30.5 pg (25.7-33.7); MEAN CELL VOLUME 89.8 fl (80-96); MEAN PLT VOLUME 7.6 fl (7.5-11.1); NEUTROPHILS 64.5 % (42.8-82.8); PLATELET COUNT 183 K/MM3 (134-434); WHITE BLOOD COUNT 5.6 K/mm3 (4.0-10.0)
[2017-06-25 08:12] LABS: ANION GAP 12 (8-16); CALCIUM 8.4 mg/dL (8.5-10.1); CO2 25 mmol/L (21-32); CREATININE 0.7 mg/dL (0.55-1.02); GLUCOSE,RANDOM 200 mg/dL (74-106); MAGNESIUM 1.9 mg/dL (1.8-2.4); PHOSPHOROUS 3.9 mg/dL (2.5-4.9)
[2017-06-25] MEDS ORDERED: PT OWN MED DRAWER 7, Y5N ONE ×2 (09:37→14:10)
[2017-06-25] MEDS: RANOLAZINE E.R. 500 MG TABLET (FP) PO SCH (09:38)
[2017-06-25] MEDS ORDERED: ASPIRIN 81 MG CHEWABLE TABLETS PO SCH (10:00)
[2017-06-25] MEDS ORDERED: FLUoxetine HCL 20 MG CAPSULE (FP) PO SCH (10:00)
[2017-06-25] MEDS ORDERED: DONEPEZIL HCL 5 MG TABLET (FP) PO SCH (10:00)
[2017-06-25] MEDS ORDERED: METOPROLOL SUCCINATE 25 MG TAB.SR.24H (FP) PO SCH (10:00)
--- NOTE | 2017-06-25 11:35 | PN ---
Physical Exam: SUBJECTIVE: Patient seen and examined at the bedside. She denies any chest pain or shortness of breath. Verbalizes increased weakness with ambulation and falls at home. OBJECTIVE: Assessed patient during ambulation with physical therapy Her gait was slow, steady but required close 1:1 supervision with ambulation She was noted to have RLE weakness She would benefit from home physical therapy and close supervision as she is a high fall risk Spoke to patient's daughter, Malou who confirms that patient has had multiple falls at home, as she often refuses to use the walker and instead uses the cane. Daughter states she is setting up physical therapy at home for her mother as requested by patient's primary care physician. Patient does not qualify for home oxygen a/e/b pre and post respiratory assessment. Vital Signs Period Temp Pulse Resp BP Sys/Brock Pulse Ox Last 24 Hr 97.5 F-98.5 F 63-69 18-20 151-183/65-82 95-97 GENERAL: The patient is awake, alert, and fully oriented, in no acute distress. HEAD: Normal with no signs of trauma. EYES: PERRL, extraocular movements intact, sclera anicteric, conjunctiva clear. No ptosis. ENT: Ears normal, nares patent, oropharynx clear without exudates, moist mucous membranes. NECK: Trachea midline, full range of motion, supple. LUNGS: mild congestion, no coughing, lungs diminished, no crackles no wheezing HEART: Regular rate and rhythm, S1, S2 without murmur, rub or gallop. ABDOMEN: Soft, nontender, nondistended, normoactive bowel sounds, no guarding, no rebound, no hepatosplenomegaly, no masses. EXTREMITIES: 2+ pulses, warm, well-perfused, no edema. NEUROLOGICAL: Normal speech, gait steady but needs 1:1 assistance with ambulation, PT being set up at home. PSYCH: Normal mood, normal affect. SKIN: Warm, dry, normal turgor, no rashes or lesions noted Laboratory Results - last 24 hr 06/24/17 06/24/17 06/24/17 14:18 14:18 14:18 WBC 6.7 RBC 4.45 Hgb 13.7 Hct 40.0 MCV 90.0 MCH 30.8 MCHC 34.3 RDW 13.7 Plt Count 181 MPV 7.1 L Neutrophils % 61.0 Lymphocytes % 27.7 Monocytes % 7.0 Eosinophils % 3.5 Basophils % 0.8 Sodium Potassium Chloride Carbon Dioxide Anion Gap BUN Creatinine Creat Clearance w eGFR POC Glucometer Random Glucose Lactic Acid 2.4 H* Calcium Phosphorus Magnesium Cancelled Total Bilirubin AST ALT Alkaline Phosphatase Creatine Kinase Cancelled Troponin I Cancelled B-Natriuretic Peptide Cancelled Total Protein Albumin Lipase Urine Color Urine Appearance Urine pH Ur Specific [place] Urine Protein Urine Glucose (UA) Urine Ketones Urine Blood Urine Nitrite Urine Bilirubin Urine Urobilinogen Ur Leukocyte Esterase 06/24/17 06/24/17 06/24/17 14:18 16:30 17:35 WBC RBC Hgb Hct MCV MCH MCHC RDW Plt Count MPV Neutrophils % Lymphocytes % Monocytes % Eosinophils % Basophils % Sodium 134 L Potassium 4.4 Chloride 97 L Carbon Dioxide 23 Anion Gap 14 BUN 11 D Creatinine 0.8 Creat Clearance w eGFR > 60 POC Glucometer Random Glucose 270 H D Lactic Acid 2.1 H* Calcium 8.8 Phosphorus Magnesium 1.8 Total Bilirubin 0.3 AST 25 D ALT 26 D Alkaline Phosphatase 74 Creatine Kinase 72 Troponin I < 0.02 B-Natriuretic Peptide 590.26 H Total Protein 7.2 Albumin 3.5 Lipase Urine Color Yellow Urine Appearance Slcloudy Urine pH 5.0 D Ur Specific [place] 1.022 Urine Protein Negative Urine Glucose (UA) 3+ H Urine Ketones Negative Urine Blood Negative Urine Nitrite Negative Urine Bilirubin Negative Urine Urobilinogen Negative Ur Leukocyte Esterase Negative 06/24/17 06/25/17 06/25/17 21:52 05:42 06:00 WBC 5.6 RBC 4.49 Hgb 13.7 Hct 40.4 MCV 89.8 MCH 30.5 MCHC 34.0 RDW 14.0 Plt Count 183 MPV 7.6 Neutrophils % 64.5 Lymphocytes % 24.7 Monocytes % 5.8 Eosinophils % 4.2 Basophils % 0.8 Sodium Potassium Chloride Carbon Dioxide Anion Gap BUN Creatinine Creat Clearance w eGFR POC Glucometer 220 225 Random Glucose Lactic Acid Calcium Phosphorus Magnesium Total Bilirubin AST ALT Alkaline Phosphatase Creatine Kinase Troponin I B-Natriuretic Peptide Total Protein Albumin Lipase Urine Color Urine Appearance Urine pH Ur Specific [place] Urine Protein Urine Glucose (UA) Urine Ketones Urine Blood Urine Nitrite Urine Bilirubin Urine Urobilinogen Ur Leukocyte Esterase 06/25/17 06/25/17 06/25/17 06:00 06:00 06:00 WBC RBC Hgb Hct MCV MCH MCHC RDW Plt Count MPV Neutrophils % Lymphocytes % Monocytes % Eosinophils % Basophils % Sodium 141 Potassium 3.9 Chloride 104 Carbon Dioxide 25 Anion Gap 12 BUN 10 Creatinine 0.7 Creat Clearance w eGFR POC Glucometer Random Glucose 200 H D Lactic Acid 1.9 Calcium 8.4 L Phosphorus 3.9 Magnesium 1.9 Total Bilirubin AST ALT Alkaline Phosphatase Creatine Kinase Troponin I B-Natriuretic Peptide Total Protein Albumin Lipase 115 Urine Color Urine Appearance Urine pH Ur Specific [place] Urine Protein Urine Glucose (UA) Urine Ketones Urine Blood Urine Nitrite Urine Bilirubin Urine Urobilinogen Ur Leukocyte Esterase Active Medications Generic Name Dose Route Start Last Admin Trade Name Freq PRN Reason Stop Dose Admin Alprazolam 0.5 mg 06/24/17 20:58 06/25/17 09:39 Xanax - PO 0.5 mg BID PRN Administration ANXIETY Aspirin 81 mg 06/25/17 10:00 06/25/17 09:39 Asa - PO 81 mg DAILY LG Administration Atorvastatin Calcium 10 mg 06/24/17 22:00 06/24/17 21:21 Lipitor - PO 10 mg HS LG Administration Bisacodyl 5 mg 06/24/17 21:00 Dulcolax - PO DAILY PRN CONSTIPATION Donepezil HCl 5 mg 06/25/17 10:00 06/25/17 09:39 Aricept - PO 5 mg DAILY LG Administration Fluoxetine HCl 40 mg 06/25/17 10:00 06/25/17 09:39 Prozac - PO 40 mg DAILY LG Administration Insulin Aspart 1 vial 06/24/17 22:00 06/25/17 06:02 Novolog Vial Sliding Scale - SQ 3 units ACHS LG Administration Protocol Metoprolol Succinate 25 mg 06/25/17 10:00 06/25/17 09:38 Toprol Xl - PO 25 mg DAILY LG Administration Mirtazapine 15 mg 06/24/17 22:00 06/24/17 21:21 Remeron - PO 15 mg HS LG Administration Polyethylene Glycol 17 gm 06/24/17 22:00 06/24/17 21:21 Miralax (For Daily Use) - PO 17 gm HS LG Administration Pramipexole Dihydrochloride 1.5 mg 06/24/17 22:00 06/25/17 09:39 Mirapex - PO 1.5 mg Q4HWA LG Administration Ranolazine 500 mg 06/24/17 22:00 06/25/17 09:38 Ranexa - PO 500 mg BID LG Administration Sitagliptin Phosphate 50 mg 06/25/17 07:00 06/25/17 06:02 Januvia - PO 50 mg DAILY@0700 LG Administration ASSESSMENT/PLAN: Patient is an 86 year old female with a significant past medical history of cerebral aneurysm, hypertension, HLD, CAD s/p stents, NIDDM, Parkinson's disease , GERD and anxiety. She presented to the ED with generalized weakness, malaise. She was found to have elevated lactic acid on admission. Imaging: CXR : cardiomegaly, mild congestion ECG: Atrial-sensed ventricular-paced rhythm, ABNORMAL ECG, WHEN COMPARED WITH ECG OF 12-DEC-2016 15:14, NO SIGNIFICANT CHANGE Generalized Weakness, chronic Multiple falls @ home confirmed by daughter, RLE weakness noted with ambulation today Family in process of setting up physical therapy at home, patient has home [employer] 24 hours Rolling walker and cane available at home Vitlas stable, no signs of infection that may be contributing generalized weakness may be due to progression of Parkinsons? EKG and xray reviewed Lactic acidosis, resolved Now within normal range No other signs of infection, WBC wnl, afebrile, lactic acidosis resolved, UA - leuks, blood cultures sent Constipation, chronic start miralax daily Had BM today as per pt HTN/HLD/CAD, chronic cont home meds: ASA, toprol, ranexa, lipitor Dementia with depression and anxiety, chronic Continue home meds Parkinson's disease, chronic cont mirapex Fall precautions Dispo: Discharge home to day with PCP follow up. Fall risk, physical therapy being set up at home. full code.
[2017-06-25 12:09] VITALS: PULSE 67
[2017-06-25 12:16] VITALS: BP 160/84; TEMP 98.5
--- NOTE | 2017-06-25 13:34 | DS ---
Physical Exam: SUBJECTIVE: Patient seen and examined at the bedside. She denies any chest pain or shortness of breath. Verbalizes increased weakness with ambulation and falls at home. OBJECTIVE: Assessed patient during ambulation with physical therapy Her gait was slow, steady but required close 1:1 supervision with ambulation, fall risk She was noted to have RLE weakness She would benefit from home physical therapy and close supervision as she is a high fall risk Spoke to patient's daughter, Malou who confirms that patient has had multiple falls at home, as she often refuses to use the walker and instead uses the cane. Daughter states she is setting up physical therapy at home for her mother as requested by patient's primary care physician. Patient does not qualify for home oxygen a/e/b pre and post respiratory assessment. Vital Signs Period Temp Pulse Resp BP Sys/Brock Pulse Ox Last 24 Hr 97.5 F-98.5 F 63-69 18-20 151-183/65-82 95-97 GENERAL: The patient is awake, alert, and fully oriented, in no acute distress. HEAD: Normal with no signs of trauma. EYES: PERRL, extraocular movements intact, sclera anicteric, conjunctiva clear. No ptosis. ENT: Ears normal, nares patent, oropharynx clear without exudates, moist mucous membranes. NECK: Trachea midline, full range of motion, supple. LUNGS: mild congestion, no coughing, lungs diminished, no crackles no wheezing HEART: Regular rate and rhythm, S1, S2 without murmur, rub or gallop. ABDOMEN: Soft, nontender, nondistended, normoactive bowel sounds, no guarding, no rebound, no hepatosplenomegaly, no masses. EXTREMITIES: 2+ pulses, warm, well-perfused, no edema. NEUROLOGICAL: Normal speech, gait steady but needs 1:1 assistance with ambulation, PT being set up at home. PSYCH: Normal mood, normal affect. SKIN: Warm, dry, normal turgor, no rashes or lesions noted Laboratory Results - last 24 hr 06/24/17 06/24/17 06/24/17 14:18 14:18 14:18 WBC 6.7 RBC 4.45 Hgb 13.7 Hct 40.0 MCV 90.0 MCH 30.8 MCHC 34.3 RDW 13.7 Plt Count 181 MPV 7.1 L Neutrophils % 61.0 Lymphocytes % 27.7 Monocytes % 7.0 Eosinophils % 3.5 Basophils % 0.8 Sodium Potassium Chloride Carbon Dioxide Anion Gap BUN Creatinine Creat Clearance w eGFR POC Glucometer Random Glucose Lactic Acid 2.4 H* Calcium Phosphorus Magnesium Cancelled Total Bilirubin AST ALT Alkaline Phosphatase Creatine Kinase Cancelled Troponin I Cancelled B-Natriuretic Peptide Cancelled Total Protein Albumin Lipase Urine Color Urine Appearance Urine pH Ur Specific [place] Urine Protein Urine Glucose (UA) Urine Ketones Urine Blood Urine Nitrite Urine Bilirubin Urine Urobilinogen Ur Leukocyte Esterase 06/24/17 06/24/17 06/24/17 14:18 16:30 17:35 WBC RBC Hgb Hct MCV MCH MCHC RDW Plt Count MPV Neutrophils % Lymphocytes % Monocytes % Eosinophils % Basophils % Sodium 134 L Potassium 4.4 Chloride 97 L Carbon Dioxide 23 Anion Gap 14 BUN 11 D Creatinine 0.8 Creat Clearance w eGFR > 60 POC Glucometer Random Glucose 270 H D Lactic Acid 2.1 H* Calcium 8.8 Phosphorus Magnesium 1.8 Total Bilirubin 0.3 AST 25 D ALT 26 D Alkaline Phosphatase 74 Creatine Kinase 72 Troponin I < 0.02 B-Natriuretic Peptide 590.26 H Total Protein 7.2 Albumin 3.5 Lipase Urine Color Yellow Urine Appearance Slcloudy Urine pH 5.0 D Ur Specific [place] 1.022 Urine Protein Negative Urine Glucose (UA) 3+ H Urine Ketones Negative Urine Blood Negative Urine Nitrite Negative Urine Bilirubin Negative Urine Urobilinogen Negative Ur Leukocyte Esterase Negative 06/24/17 06/25/17 06/25/17 21:52 05:42 06:00 WBC 5.6 RBC 4.49 Hgb 13.7 Hct 40.4 MCV 89.8 MCH 30.5 MCHC 34.0 RDW 14.0 Plt Count 183 MPV 7.6 Neutrophils % 64.5 Lymphocytes % 24.7 Monocytes % 5.8 Eosinophils % 4.2 Basophils % 0.8 Sodium Potassium Chloride Carbon Dioxide Anion Gap BUN Creatinine Creat Clearance w eGFR POC Glucometer 220 225 Random Glucose Lactic Acid Calcium Phosphorus Magnesium Total Bilirubin AST ALT Alkaline Phosphatase Creatine Kinase Troponin I B-Natriuretic Peptide Total Protein Albumin Lipase Urine Color Urine Appearance Urine pH Ur Specific [place] Urine Protein Urine Glucose (UA) Urine Ketones Urine Blood Urine Nitrite Urine Bilirubin Urine Urobilinogen Ur Leukocyte Esterase 06/25/17 06/25/17 06/25/17 06:00 06:00 06:00 WBC RBC Hgb Hct MCV MCH MCHC RDW Plt Count MPV Neutrophils % Lymphocytes % Monocytes % Eosinophils % Basophils % Sodium 141 Potassium 3.9 Chloride 104 Carbon Dioxide 25 Anion Gap 12 BUN 10 Creatinine 0.7 Creat Clearance w eGFR POC Glucometer Random Glucose 200 H D Lactic Acid 1.9 Calcium 8.4 L Phosphorus 3.9 Magnesium 1.9 Total Bilirubin AST ALT Alkaline Phosphatase Creatine Kinase Troponin I B-Natriuretic Peptide Total Protein Albumin Lipase 115 Urine Color Urine Appearance Urine pH Ur Specific [place] Urine Protein Urine Glucose (UA) Urine Ketones Urine Blood Urine Nitrite Urine Bilirubin Urine Urobilinogen Ur Leukocyte Esterase 06/25/17 11:45 WBC RBC Hgb Hct MCV MCH MCHC RDW Plt Count MPV Neutrophils % Lymphocytes % Monocytes % Eosinophils % Basophils % Sodium Potassium Chloride Carbon Dioxide Anion Gap BUN Creatinine Creat Clearance w eGFR POC Glucometer 235 Random Glucose Lactic Acid Calcium Phosphorus Magnesium Total Bilirubin AST ALT Alkaline Phosphatase Creatine Kinase Troponin I B-Natriuretic Peptide Total Protein Albumin Lipase Urine Color Urine Appearance Urine pH Ur Specific [place] Urine Protein Urine Glucose (UA) Urine Ketones Urine Blood Urine Nitrite Urine Bilirubin Urine Urobilinogen Ur Leukocyte Esterase HOSPITAL COURSE: Date of Admission:06/24/17 Date of Discharge: 06/25/17 ASSESSMENT/PLAN: Patient is an 86 year old female with a significant past medical history of cerebral aneurysm, hypertension, HLD, CAD s/p stents, NIDDM, Parkinson's disease , GERD and anxiety. She presented to the ED with generalized weakness, malaise. She was found to have elevated lactic acid on admission. Imaging: CXR : cardiomegaly, mild congestion ECG: Atrial-sensed ventricular-paced rhythm, ABNORMAL ECG, WHEN COMPARED WITH ECG OF 12-DEC-2016 15:14, NO SIGNIFICANT CHANGE Generalized Weakness, chronic Multiple falls @ home confirmed by daughter, RLE weakness noted with ambulation today Family in process of setting up physical therapy at home, patient has home [employer]ER 24 hours Rolling walker and cane available at home Vitals stable, no signs of infection that may be contributing generalized weakness may be due to progression of Parkinsons? EKG and xray reviewed Lactic acidosis, resolved Now within normal range No other signs of infection, WBC wnl, afebrile, lactic acidosis resolved, UA - leuks, blood cultures sent Constipation, chronic start miralax daily Had BM today as per pt HTN/HLD/CAD, chronic cont home meds: ASA, toprol, ranexa, lipitor Dementia with depression and anxiety, chronic Continue home meds Parkinson's disease, chronic cont mirapex Fall precautions Dispo: Discharge home to day with PCP follow up. Fall risk, physical therapy being set up at home. full code. Minutes to complete discharge: 60 Discharge Summary Reason For Visit: INCREASED LACTIC ACID LEVEL Current Active Problems Diabetes mellitus (Acute) Elevated lactic acid level (Acute) Generalized weakness (Acute) Condition: Stable - Instructions Diet, Activity, Other Instructions: Mrs England Please resume your home medications as prescribed. Please continue with physical therapy that is being arranged at home. Please use your rolling walker for extra support. Follow up with your primary care physician within 1 week after discharge. [facility] [phone] Referrals: Carlos Sepulveda [Primary Care Provider] - Disposition: HOME - Home Medications Comprehensive Discharge Medication List: Ambulatory Orders Fluoxetine HCl [Prozac -] 40 mg PO DAILY 03/29/13 Simvastatin [Zocor -] 20 mg PO HS 03/29/13 Pramipexole Dihydrochloride [Mirapex -] 1.5 mg PO Q4H 07/06/15 Sitagliptin Phosphate [Januvia] 50 mg PO DAILY 07/06/15 Alprazolam [Xanax] 0.5 mg PO PRN PRN 04/29/16 Aspirin [ASA -] 81 mg PO DAILY 04/29/16 Donepezil HCl 5 mg PO DAILY 04/29/16 Metformin HCl 500 mg PO BID 04/29/16 Oxycodone HCl 5 mg PO Q6H PRN 04/29/16 Ranolazine [Ranexa -] 500 mg PO BID #60 tab 05/18/16 Metoprolol Succinate [Toprol XL -] 25 mg PO DAILY 10/17/16 Bisacodyl [Dulcolax] 5 mg PO PRN 12/12/16 Esomeprazole Mag Trihydrate [Nexium Packets] 40 mg PO PRN PRN 12/12/16 Mirtazapine [Remeron -] 15 mg PO HS 12/12/16 This patient is new to me today: Yes Date on this admission: 06/25/17 Emergency Visit: Yes ED Registration Date: 06/24/17 Care time: The patient presented to the Emergency Department on the above date and was hospitalized for further evaluation of their emergent condition. Critical Care patient: No - Discharge Referral Referred to [facility] No
== END 2017-06-25 15:48 | disposition home or self-care (01) ==
LOC: JER 13:01 → JERBED 15:58 → J8W 19:30
PROVIDERS: ADMIT Hospitalist; ATTEND Nurse Practitioner Family
PROC: 3E0337Z Introduction of Electrolytic and Water Balance Substance into Peripheral Vein, Percutaneous Approach (ICD-10-PCS; principal; 2017-06-24)
PROC: 3E013VG Introduction of Insulin into Subcutaneous Tissue, Percutaneous Approach (ICD-10-PCS; 2017-06-24)
DX: E87.2 Acidosis (principal); R53.1 Weakness; R74.0 Nonspecific elevation of levels of transaminase and lactic acid dehydrogenase [LDH]; E11.8 Type 2 diabetes mellitus with unspecified complications; I10 Essential (primary) hypertension; I25.10 Atherosclerotic heart disease of native coronary artery without angina pectoris; E78.5 Hyperlipidemia, unspecified; G20 Parkinson's disease; F02.80 Dementia in other diseases classified elsewhere, unspecified severity, without behavioral disturbance, psychotic disturbance, mood disturbance, and anxiety; F41.9 Anxiety disorder, unspecified; Z86.79 Personal history of other diseases of the circulatory system; Z95.5 Presence of coronary angioplasty implant and graft; Z95.0 Presence of cardiac pacemaker; K21.9 Gastro-esophageal reflux disease without esophagitis; Z90.49 Acquired absence of other specified parts of digestive tract; Z88.0 Allergy status to penicillin; Z79.82 Long term (current) use of aspirin; Z79.84 Long term (current) use of oral hypoglycemic drugs; K59.00 Constipation, unspecified; F32.9 Major depressive disorder, single episode, unspecified
CPT/HCPCS: 36415; 71010-TC; 80048; 80053; 81003; 82550; 83605; 83690; 83735; 83880; 84100; 84484; 85025; 87040; 87086; 87804; 93005; 93010; 94761; 96372; 97116-GP; 97161-GP; 99284-25; G0378

== ENCOUNTER 2017-12-16 08:05 | Emergency (ER) | payer OTHER ==
[2017-12-16 08:12] VITALS: BMI 26.5
[2017-12-16] MEDS ORDERED: KETOROLAC TROMETHAMINE 60 MG/2 ML VIAL IM ONE (08:49)
[2017-12-16] MEDS ORDERED: CYCLOBENZAPRINE HCL 10 MG TABLET (FP) PO ONE (08:49)
[2017-12-16] MEDS ORDERED: CYCLOBENZAPRINE HCL 10 MG TABLET (FP) ONE (08:50)
[2017-12-16] MEDS ORDERED: KETOROLAC TROMETHAMINE 60 MG/2 ML VIAL ONE (08:50)
--- NOTE | 2017-12-16 10:13 | PDOC ---
History of Present Illness - General Chief Complaint: Back Pain Stated Complaint: BACK PAIN Time Seen by Provider: 12/16/17 08:19 History Source: Patient Exam Limitations: No Limitations - History of Present Illness Initial Comments: 12/16/17 09:02 87-year-old female with history of low back pain presents to the ED with complaints of low back pain for the past 3 days despite taking Tylenol and oxycodone. Patient states she was trying to move a marble coffee table when she felt a pull in her lower back and has been in discomfort since. Patient states is able to ambulate but with discomfort. Patient states he tried putting a heating pad to the area with no improvement. Patient denies saddle anesthesia, incontinence, weakness or lower extremity or paresthesia to the lower extremities. Occurred: reports: other (wednesday) Severity: reports: moderate Pain Location: reports: back Method of Injury: Yes: other Modifying Factors: improves with: None Associated Symptoms (Fall): other Past History - Travel Traveled outside of the country in the last 30 days: No - Past Medical History Allergies/Adverse Reactions: Allergies Allergy/AdvReac Type Severity Reaction Status Date / Time Penicillins Allergy Intermediate Verified 12/16/17 08:07 Home Medications: Ambulatory Orders Fluoxetine HCl [Prozac -] 40 mg PO DAILY 03/29/13 Simvastatin [Zocor -] 20 mg PO HS 03/29/13 Pramipexole Dihydrochloride [Mirapex -] 1.5 mg PO Q4H 07/06/15 Sitagliptin Phosphate [Januvia] 50 mg PO DAILY 07/06/15 Aspirin [ASA -] 81 mg PO DAILY 04/29/16 Donepezil HCl 5 mg PO DAILY 04/29/16 Metformin HCl 500 mg PO BID 04/29/16 Oxycodone HCl 5 mg PO Q6H PRN 04/29/16 Ranolazine [Ranexa -] 500 mg PO BID #60 tab 05/18/16 Metoprolol Succinate [Toprol XL -] 25 mg PO DAILY 10/17/16 Bisacodyl [Dulcolax] 5 mg PO PRN 12/12/16 Esomeprazole Mag Trihydrate [Nexium Packets] 40 mg PO PRN PRN 12/12/16 Memantine HCl [Namenda -] 5 mg PO DAILY 12/16/17 Quetiapine Fumarate [Seroquel] 100 mg PO DAILY 12/16/17 Cardiac Disorders: Yes (Chest pain) CVA: (Non-ruptured cerebral aneurysm 2007, tension headaches) COPD: No DVT: No Dementia: Yes Diabetes: Yes GI Disorders: Yes (GERD, COLONOSCOPY CONSTIPATION) HTN: Yes Hypercholesterolemia: Yes - Surgical History Abdominal Surgery: Yes Cardiac Surgery: Yes (Stent, PM.) Cholecystectomy: Yes - Immunization History Immunization Up to Date: Yes (FLU AND PNA) - Suicide/Smoking/Psychosocial Hx Smoking Status: No Smoking History: Never smoked Have you smoked in the past 12 months: No Number of Cigarettes Smoked Daily: 0 Information on smoking cessation initiated: No Hx Alcohol Use: No Drug/Substance Use Hx: No Substance Use Type: None Patient Lives Alone: No Lives with/in: children Trauma Specific PMHX - Complaint Specific PMHX Back Injury: Yes Neck Injury: No Review of Systems - Review of Systems Able to Perform ROS?: No Constitutional: No: Symptoms Reported HEENTM: No: Symptoms Reported Respiratory: No: Symptoms reported Cardiac (ROS): No: Symptoms Reported ABD/GI: No: Symptoms Reported : No: Symptoms Reported Musculoskeletal: Yes: Back Pain Integumentary: No: Symptoms Reported Neurological: No: Symptoms reported *Physical Exam - Vital Signs Last Vital Signs Temp Pulse Resp BP Pulse Ox 97.5 F L 75 18 142/55 95 12/16/17 08:08 12/16/17 08:08 12/16/17 08:08 12/16/17 08:08 12/16/17 08:08 - Physical Exam General Appearance: Yes: Nourished, Appropriately Dressed. No: Apparent Distress Neck: positive: Supple. negative: Tender, Decreased range of motion Gastrointestinal/Abdominal: positive: Soft. negative: Distended, Tenderness Musculoskeletal: positive: Vertebral Tenderness (L4-S1). negative: CVA Tenderness, Decreased Range of Motion Extremity: positive: Normal Capillary Refill, Normal Range of Motion. negative : Pedal Edema Integumentary: positive: Normal Color, Warm, Moist Neurologic: positive: Motor Strength 5/5 (ambulatory) ED Treatment Course - RADIOLOGY Radiology Studies Ordered: Category Date Time Status LUMBAR SPINE CT W/O CONTRAST [CT] Stat CT Scan 12/16/17 08:42 Ordered - Medications Given in the ED: ED Medications Discontinued Medications Generic Name Dose Route Start Last Admin Trade Name Freq PRN Reason Stop Dose Admin Cyclobenzaprine HCl 5 mg 12/16/17 08:49 12/16/17 08:51 Flexeril - PO 12/16/17 08:50 5 mg ONCE ONE Administration Ketorolac Tromethamine 30 mg 12/16/17 08:49 12/16/17 08:51 Toradol Injection - IM 12/16/17 08:50 30 mg ONCE ONE Administration Medical Decision Making - Medical Decision Making 12/16/17 11:05 Pt with history of low back pain now complaining of exacerbation of low back pain after trying to move a marble coffee table. Patient came here for evaluation secondary to continual pain despite taking Tylenol and oxycodone. Patient on exam did have tenderness to L4-S1 concerning for vertebral injury/ muscle spasm versus fracture. Patient ordered for 30 mg IM of Toradol, 5 mg by mouth of Flexeril, and a CT of her lumbar spine. 12/16/17 11:30 CT of the lumbar spine shows mild recent, acute/subacute anterior wedging last compression of L4 vertebral body with minimal displacement of small bone fragments seen along its superior/anterior margin and with mild adjacent anterior soft tissue edema. No gross hematoma is identified. Will contact neurosurgery Dr. William. 12/16/17 13:15 Case discussed with neurosurgeon Dr. Blair who recommends to order an elastic brace and have patient follow-up in the office. *DC/Admit/Observation/Transfer Diagnosis at time of Disposition: Lumbar vertebral fracture Qualifiers: Encounter type: initial encounter Lumbar vertebra fracture level: L4 Fracture type: closed - Discharge Dispostion Disposition: HOME Condition at time of disposition: Good - Referrals Referrals: Wyatt Burnham MD, [facility] [Staff Physician] - - Patient Instructions Printed Discharge Instructions: Vertebral Compression Fracture Additional Instructions: At this time I recommend avoiding extreme movements that trigger your discomfort. Please wear the brace during the day and may remove at night. Please follow-up with neurosurgeon in the office by calling the number listed on your discharge. She may apply ice to the affected area to relieve some of the inflammation. - Post Discharge Activity
[2017-12-16 11:46] VITALS: BP 148/75; PULSE 70; TEMP 98
== END 2017-12-16 13:51 | disposition home or self-care (01) ==
LOC: JER 08:05
PROC: 3E0233Z Introduction of Anti-inflammatory into Muscle, Percutaneous Approach (ICD-10-PCS; principal; 2017-12-16)
DX: S32.009A Unspecified fracture of unspecified lumbar vertebra, initial encounter for closed fracture (principal); X58.XXXA Exposure to other specified factors, initial encounter; Y93.9 Activity, unspecified; Y92.9 Unspecified place or not applicable; I10 Essential (primary) hypertension; E78.00 Pure hypercholesterolemia, unspecified; K21.9 Gastro-esophageal reflux disease without esophagitis
CPT/HCPCS: 72131-TC; 99283-25

== ENCOUNTER 2021-01-24 17:16 | Emergency (ER) | payer OTHER ==
[2021-01-24 17:43] VITALS: BMI 26.4
[2021-01-24 18:01] VITALS: BP 157/65; PULSE 56; TEMP 98.5
[2021-01-24 20:11] LABS: BASO % 0.6 % (0-2.0); EOS % 9.9 % (0-4.5); HEMATOCRIT 40.6 % (32.4-45.2); HEMOGLOBIN 14.2 GM/dL (10.7-15.3); LYMPH % 31.7 % (8-40); MEAN CELL VOLUME 91.7 fl (80-96); MEAN PLT VOLUME 8.6 fl (7.5-11.1); MONO % 7.5 % (3.8-10.2); NEUT % 50.3 % (42.8-82.8); PLATELET COUNT 216 K/MM3 (134-434); RBC 4.43 M/mm3 (3.60-5.2); RDW 13.4 % (11.6-15.6); WHITE BLOOD COUNT 4.8 K/mm3 (4.0-10.0)
[2021-01-24 20:23] LABS: CHLORIDE 105 mmol/L (98-107); SODIUM 140 mmol/L (136-145)
[2021-01-24 20:25] LABS: CALCIUM 9.2 mg/dL (8.5-10.1)
[2021-01-24 20:26] LABS: ALBUMIN 3.5 g/dl (3.4-5.0); ANION GAP 5 MMOL/L (8-16); BLOOD UREA NITROGEN 16.5 mg/dL (7-18); CO2 30 mmol/L (21-32); GLUCOSE,RANDOM 83 mg/dL (74-106)
[2021-01-24 20:28] LABS: CREATININE 0.9 mg/dL (0.55-1.3); SGPT/ALT 24 U/L (13-61)
[2021-01-24 20:29] LABS: SGOT/AST 57 U/L (15-37)
[2021-01-24 20:30] LABS: BILIRUBIN,TOTAL 0.4 mg/dL (0.2-1)
[2021-01-24 20:31] LABS: ALK PHOS 75 U/L (45-117)
[2021-01-24] MEDS ORDERED: ACETAMINOPHEN 1000 MG/100 ML VIAL (NON FORMULARY) IVPB ONE (21:29)
[2021-01-24] MEDS ORDERED: ACETAMINOPHEN INJECTION 100 ML IVPB ONE (21:32)
[2021-01-24] MEDS ORDERED: ACETAMINOPHEN 325 MG TABLET (FP) ONE (21:36)
[2021-01-24] MEDS ORDERED: ACETAMINOPHEN 325 MG TABLET (FP) PO ONE (21:41)
== END 2021-01-24 22:27 | disposition home or self-care (01) ==
LOC: JER 17:16
PROC: 0QSRXZZ Reposition Left Toe Phalanx, External Approach (ICD-10-PCS; principal; 2021-01-24)
PROC: 3E033NZ Introduction of Analgesics, Hypnotics, Sedatives into Peripheral Vein, Percutaneous Approach (ICD-10-PCS; 2021-01-24)
DX: S92.912A Unspecified fracture of left toe(s), initial encounter for closed fracture (principal); S09.90XA Unspecified injury of head, initial encounter; F03.90 Unspecified dementia, unspecified severity, without behavioral disturbance, psychotic disturbance, mood disturbance, and anxiety
CPT/HCPCS: 36415; 70450-TC; 71045-TC-FY; 72125-TC; 72170-TC-FY; 73660-TC-LT-FY; 80053; 82550; 82553; 84484; 85025; 93005; 93010; 99285-25

== ENCOUNTER 2021-01-28 11:01 | Inpatient (IN) | payer OTHER ==
[2021-01-28 13:45] LABS: BASO % 0.3 % (0-2.0); EOS % 3.2 % (0-4.5); HEMATOCRIT 45.3 % (32.4-45.2); HEMOGLOBIN 15.1 GM/dL (10.7-15.3); LYMPH % 15.1 % (8-40); MCH 31.1 pg (25.7-33.7); MCHC 33.4 g/dl (32.0-36.0); MEAN CELL VOLUME 93.3 fl (80-96); MEAN PLT VOLUME 7.9 fl (7.5-11.1); MONO % 3.7 % (3.8-10.2); NEUT % 77.7 % (42.8-82.8); PLATELET COUNT 177 10^3/uL (134-434); RBC 4.86 M/mm3 (3.60-5.2); RDW 13.2 % (11.6-15.6); WHITE BLOOD COUNT 5.5 K/mm3 (4.0-10.0)
[2021-01-28 14:03] LABS: CHLORIDE 103 mmol/L (98-107); SODIUM 137 mmol/L (136-145)
[2021-01-28 14:04] LABS: INR 1.01 (0.83-1.09); PROTHROMBIN TIME (PATIENT) 12.4 SEC (9.7-13.0)
[2021-01-28 14:06] LABS: ACTIVATED PTT 35.2 SECONDS (25.2-36.5); BLOOD UREA NITROGEN 16.2 mg/dL (7-18); CALCIUM 9.6 mg/dL (8.5-10.1)
[2021-01-28 14:07] LABS: ALBUMIN 3.9 g/dl (3.4-5.0); ANION GAP 6 MMOL/L (8-16); CO2 28 mmol/L (21-32)
[2021-01-28 14:10] LABS: SGOT/AST 23 U/L (15-37); SGPT/ALT 17 U/L (13-61)
[2021-01-28 14:12] LABS: BILIRUBIN,TOTAL 0.4 mg/dL (0.2-1); TOT PROT 8.5 g/dl (6.4-8.2)
[2021-01-28 14:13] LABS: ALK PHOS 77 U/L (45-117)
[2021-01-28 14:19] LABS: CREATININE 0.9 mg/dL (0.55-1.3); GLUCOSE,RANDOM 157 mg/dL (74-106)
[2021-01-28 16:56] LABS: LIPASE 71 U/L (73-393)
[2021-01-28 18:00] LABS: EPI CELLS 1 /uL (0-25.1); HYALINE CASTS 0 /uL (0-3.1); URINE APPEARANCE CLOUDY; URINE BACTERIA >9,000 /uL (0-1359); URINE BILIRUBIN NEGATIVE (NEGATIVE); URINE COLOR YELLOW; URINE GLUCOSE (UA) NEGATIVE (NEGATIVE); URINE KETONE NEGATIVE (NEGATIVE); URINE LEUK ESTERASE 3+ (NEGATIVE); URINE NITRITE NEGATIVE (NEGATIVE); URINE PROTEIN NEGATIVE (NEGATIVE); URINE RBC 25 /uL (0-23.9); URINE WBC 1606 /uL (0-25.8)
[2021-01-28] MEDS ORDERED: CEFTRIAXONE 1 GM in DEXTROSE 5%-WATER - 100 ML IVPB ONE (19:16)
[2021-01-28] MEDS ORDERED: CEFTRIAXONE 1 GM/50 ML BAG ONE (20:03)
[2021-01-28] MEDS: ENOXAPARIN NA (PORCINE) 40 MG/0.4 ML DISP.SYRIN SQ SCH (21:41)
[2021-01-28] MEDS ORDERED: ENOXAPARIN NA (PORCINE) 40 MG/0.4 ML DISP.SYRIN SQ ONE (21:45)
[2021-01-28] MEDS ORDERED: PRAMIPEXOLE DIHYDROCHLORIDE 1.5 MG TABLET PO SCH (22:00)
[2021-01-28] MEDS ORDERED: BISACODYL 5 MG TABLET.DR (FP) PO PRN (22:00)
[2021-01-28] MEDS ORDERED: CEFTRIAXONE 1 GM in DEXTROSE 5%-WATER - 50 ML IVPB SCH (22:08)
[2021-01-28] MEDS: INSULIN SLIDING SCALE (NOVOLOG) 1 VIAL SQ SCH (22:41)
[2021-01-28] MEDS ORDERED: ATORVASTATIN CA 10 MG TABLET (FP) ONE (22:44)
[2021-01-28] MEDS: ATORVASTATIN CA 10 MG TABLET (FP) PO SCH (22:48)
[2021-01-28] MEDS: RANOLAZINE E.R. 500 MG TABLET (FP) PO SCH (23:03)
[2021-01-29] MEDS: INSULIN SLIDING SCALE (NOVOLOG) 1 VIAL SQ SCH ×4 (06:49→22:58)
[2021-01-29 08:01] LABS: CREATININE 0.9 mg/dL (0.55-1.3)
[2021-01-29 08:02] LABS: ALBUMIN 3.4 g/dl (3.4-5.0); BILIRUBIN,TOTAL 0.3 mg/dL (0.2-1); CALCIUM 9.2 mg/dL (8.5-10.1)
[2021-01-29 08:03] LABS: BLOOD UREA NITROGEN 15.7 mg/dL (7-18); TOT PROT 7.6 g/dl (6.4-8.2)
[2021-01-29 08:06] LABS: PHOSPHOROUS 3.9 mg/dL (2.5-4.9)
[2021-01-29] MEDS ORDERED: QUEtiapine FUMARATE 50 MG TABLET ONE (09:26)
[2021-01-29] MEDS ORDERED: PT OWN MED DRAWER 7, Y5N ONE (09:27)
[2021-01-29] MEDS ORDERED: DEXTROSE 5%-WATER - 50 ML IVPB ONE (09:28)
[2021-01-29] MEDS ORDERED: cefTRIAXone SODIUM 1 GM VIAL ONE (09:28)
[2021-01-29] MEDS: CEFTRIAXONE 1 GM in DEXTROSE 5%-WATER - 50 ML IVPB SCH (09:33)
[2021-01-29] MEDS: ASPIRIN 81 MG CHEWABLE TABLETS PO SCH (09:34)
[2021-01-29] MEDS: RANOLAZINE E.R. 500 MG TABLET (FP) PO SCH ×2 (09:34→22:34)
[2021-01-29] MEDS: MEMANTINE HCL 5 MG TABLET (UD) PO SCH (09:34)
[2021-01-29] MEDS: metoPROLOL SUCCINATE 25 MG TAB.SR.24H (FP) PO SCH (09:34)
[2021-01-29] MEDS: DONEPEZIL HCL 5 MG TABLET (FP) PO SCH (09:34)
[2021-01-29] MEDS: ENOXAPARIN NA (PORCINE) 40 MG/0.4 ML DISP.SYRIN SQ SCH (09:37)
[2021-01-29] MEDS: QUEtiapine FUMARATE 100 MG TABLET (FP) PO SCH (09:38)
[2021-01-29] MEDS ORDERED: CEFTRIAXONE 1 GM in DEXTROSE 5%-WATER - 50 ML IVPB SCH (10:00)
[2021-01-29] MEDS ORDERED: FLUoxetine HCL 20 MG CAPSULE PO SCH (10:00)
[2021-01-29] MEDS: ACETAMINOPHEN 1000 MG/100 ML VIAL (NON FORMULARY) IVPB PRN (11:24)
[2021-01-29 11:29] LABS: BASO % 0.3 % (0-2.0); EOS % 5.8 % (0-4.5); HEMATOCRIT 36.5 % (32.4-45.2); HEMOGLOBIN 12.8 GM/dL (10.7-15.3); LYMPH % 24.4 % (8-40); MCH 32.1 pg (25.7-33.7); MCHC 35.2 g/dl (32.0-36.0); MEAN CELL VOLUME 91.2 fl (80-96); MEAN PLT VOLUME 7.8 fl (7.5-11.1); MONO % 6.2 % (3.8-10.2); NEUT % 63.3 % (42.8-82.8); PLATELET COUNT 175 10^3/uL (134-434); RDW 13.1 % (11.6-15.6)
[2021-01-29] MEDS: MELATONIN 5 MG TABLETS PO SCH (22:34)
[2021-01-29] MEDS: ATORVASTATIN CA 10 MG TABLET (FP) PO SCH (22:34)
[2021-01-30] MEDS: ACETAMINOPHEN 1000 MG/100 ML VIAL (NON FORMULARY) IVPB PRN (05:24)
[2021-01-30] MEDS: INSULIN SLIDING SCALE (NOVOLOG) 1 VIAL SQ SCH ×4 (06:25→22:51)
[2021-01-30] MEDS ORDERED: QUEtiapine FUMARATE 50 MG TABLET ONE (09:07)
[2021-01-30] MEDS ORDERED: cefTRIAXone SODIUM 1 GM VIAL ONE (09:08)
[2021-01-30] MEDS ORDERED: PT OWN MED DRAWER 7, Y5N ONE (09:08)
[2021-01-30] MEDS ORDERED: DEXTROSE 5%-WATER - 50 ML IVPB ONE (09:09)
[2021-01-30 10:00] LABS: BASO % 0.7 % (0-2.0); EOS % 7.7 % (0-4.5); HEMATOCRIT 40.1 % (32.4-45.2); HEMOGLOBIN 13.7 GM/dL (10.7-15.3); LYMPH % 29.8 % (8-40); MCH 31.3 pg (25.7-33.7); MCHC 34.1 g/dl (32.0-36.0); MEAN CELL VOLUME 91.7 fl (80-96); MEAN PLT VOLUME 7.5 fl (7.5-11.1); MONO % 5.7 % (3.8-10.2); NEUT % 56.1 % (42.8-82.8); PLATELET COUNT 184 10^3/uL (134-434); RBC 4.38 M/mm3 (3.60-5.2); RDW 13.1 % (11.6-15.6); WHITE BLOOD COUNT 4.7 K/mm3 (4.0-10.0)
[2021-01-30] MEDS: ENOXAPARIN NA (PORCINE) 40 MG/0.4 ML DISP.SYRIN SQ SCH (10:05)
[2021-01-30] MEDS: RANOLAZINE E.R. 500 MG TABLET (FP) PO SCH ×2 (10:06→22:51)
[2021-01-30] MEDS: MEMANTINE HCL 5 MG TABLET (UD) PO SCH (10:06)
[2021-01-30] MEDS: ASPIRIN 81 MG CHEWABLE TABLETS PO SCH (10:06)
[2021-01-30] MEDS: DONEPEZIL HCL 5 MG TABLET (FP) PO SCH (10:06)
[2021-01-30] MEDS: FLUoxetine HCL 20 MG/5 ML 120 BOTTLE PO SCH (10:06)
[2021-01-30] MEDS: CEFTRIAXONE 1 GM in DEXTROSE 5%-WATER - 50 ML IVPB SCH (10:09)
[2021-01-30] MEDS: metoPROLOL SUCCINATE 25 MG TAB.SR.24H (FP) PO SCH (10:10)
[2021-01-30] MEDS: QUEtiapine FUMARATE 100 MG TABLET (FP) PO SCH (10:10)
[2021-01-30 10:29] LABS: BLOOD UREA NITROGEN 14.4 mg/dL (7-18)
[2021-01-30 10:30] LABS: ALBUMIN 3.3 g/dl (3.4-5.0)
[2021-01-30 10:32] LABS: CREATININE 0.9 mg/dL (0.55-1.3)
[2021-01-30 10:34] LABS: BILIRUBIN,TOTAL 0.3 mg/dL (0.2-1)
[2021-01-30] MEDS ORDERED: ACETAMINOPHEN 325 MG TABLET (FP) PO PRN (12:23)
[2021-01-30] MEDS ORDERED: INSULIN (NOVOLOG) ASPART 100 UNITS/ML 10ML VIAL ONE ×2 (12:30→17:13)
[2021-01-30 14:45] VITALS: BMI 25.7
[2021-01-30] MEDS: ATORVASTATIN CA 10 MG TABLET (FP) PO SCH (22:51)
[2021-01-30] MEDS: MELATONIN 5 MG TABLETS PO SCH (22:51)
[2021-01-31] MEDS: INSULIN SLIDING SCALE (NOVOLOG) 1 VIAL SQ SCH ×2 (06:08→10:39)
[2021-01-31 07:58] LABS: EOS % 8.5 % (0-4.5); HEMATOCRIT 37.7 % (32.4-45.2); HEMOGLOBIN 13.2 GM/dL (10.7-15.3); LYMPH % 28.6 % (8-40); MCH 31.8 pg (25.7-33.7); MCHC 34.9 g/dl (32.0-36.0); MEAN CELL VOLUME 91.1 fl (80-96); MEAN PLT VOLUME 7.1 fl (7.5-11.1); MONO % 7.1 % (3.8-10.2); NEUT % 54.8 % (42.8-82.8); PLATELET COUNT 179 10^3/uL (134-434); RBC 4.13 M/mm3 (3.60-5.2); RDW 13.2 % (11.6-15.6); WHITE BLOOD COUNT 4.6 K/mm3 (4.0-10.0)
[2021-01-31 08:11] LABS: CALCIUM 9.2 mg/dL (8.5-10.1)
[2021-01-31 08:12] LABS: ALBUMIN 3.3 g/dl (3.4-5.0)
[2021-01-31 08:15] LABS: CREATININE 0.8 mg/dL (0.55-1.3)
[2021-01-31 08:16] LABS: BILIRUBIN,TOTAL 0.6 mg/dL (0.2-1); TOT PROT 7.2 g/dl (6.4-8.2)
[2021-01-31] MEDS ORDERED: QUEtiapine FUMARATE 50 MG TABLET ONE (08:22)
[2021-01-31] MEDS ORDERED: DEXTROSE 5%-WATER - 50 ML IVPB ONE (08:23)
[2021-01-31] MEDS ORDERED: cefTRIAXone SODIUM 1 GM VIAL ONE (08:23)
[2021-01-31] MEDS: ASPIRIN 81 MG CHEWABLE TABLETS PO SCH (09:25)
[2021-01-31] MEDS: ENOXAPARIN NA (PORCINE) 40 MG/0.4 ML DISP.SYRIN SQ SCH (09:25)
[2021-01-31] MEDS: CEFTRIAXONE 1 GM in DEXTROSE 5%-WATER - 50 ML IVPB SCH (09:25)
[2021-01-31] MEDS: MEMANTINE HCL 5 MG TABLET (UD) PO SCH (09:26)
[2021-01-31] MEDS: RANOLAZINE E.R. 500 MG TABLET (FP) PO SCH (09:26)
[2021-01-31] MEDS: QUEtiapine FUMARATE 100 MG TABLET (FP) PO SCH (09:26)
[2021-01-31] MEDS: metoPROLOL SUCCINATE 25 MG TAB.SR.24H (FP) PO SCH (09:26)
[2021-01-31] MEDS: DONEPEZIL HCL 5 MG TABLET (FP) PO SCH (09:26)
[2021-01-31] MEDS: FLUoxetine HCL 20 MG/5 ML 120 BOTTLE PO SCH (09:28)
[2021-01-31] MEDS ORDERED: INSULIN (NOVOLOG) ASPART 100 UNITS/ML 10ML VIAL ONE (10:38)
[2021-01-31 14:44] VITALS: BP 145/62; PULSE 60; TEMP 97.4
[2021-01-31] MEDS ORDERED: AMOX TR/POTASSIUM CLAVULANATE 125 MG/5 ML BOTTLE 75ML PO SCH (17:30)
[2021-02-01] MEDS ORDERED: AMOX TR/POTASSIUM CLAVULANATE 125 MG/5 ML BOTTLE 75ML PO SCH (10:00)
== END 2021-01-31 16:53 | disposition home health service (06) | DRG 689 ==
LOC: JER 11:01 → JERBED 19:56 → J7W 01-29 00:11
PROVIDERS: ADMIT Hospitalist; ATTEND Nurse Practitioner Acute Care
DX: N39.0 Urinary tract infection, site not specified (principal); G93.41 Metabolic encephalopathy; F03.90 Unspecified dementia, unspecified severity, without behavioral disturbance, psychotic disturbance, mood disturbance, and anxiety; I11.0 Hypertensive heart disease with heart failure; I50.9 Heart failure, unspecified; E11.9 Type 2 diabetes mellitus without complications; Z79.84 Long term (current) use of oral hypoglycemic drugs; G20 Parkinson's disease; F02.80 Dementia in other diseases classified elsewhere, unspecified severity, without behavioral disturbance, psychotic disturbance, mood disturbance, and anxiety; I25.10 Atherosclerotic heart disease of native coronary artery without angina pectoris; F32.9 Major depressive disorder, single episode, unspecified; F41.9 Anxiety disorder, unspecified; R29.6 Repeated falls; E78.5 Hyperlipidemia, unspecified; Z20.822 Contact with and (suspected) exposure to COVID-19
CPT/HCPCS: 36415; 70450-TC; 71045-TC-FY; 71260-TC; 73610-TC-LT-FY; 73630-TC-LT; 74177-TC; 80053; 81003; 82550; 82962; 83605; 83690; 83735; 84100; 84484; 85025; 85610; 85730; 87086; 87186; 93005; 93010; 97116-GP; 97161-GP; 99285-25; C9803; J0131; Q9967; U0003; U0005

== ENCOUNTER 2021-07-05 16:03 | Inpatient (IN) | payer OTHER ==
[2021-07-05] MEDS ORDERED: ACETAMINOPHEN 1000 MG/100 ML VIAL IVPB ONE (17:03)
[2021-07-05] MEDS ORDERED: ACETAMINOPHEN INJECTION 100 ML IVPB ONE (17:46)
[2021-07-05 17:52] LABS: BASO % 0.4 % (0-2.0); EOS % 4.6 % (0-4.5); HEMOGLOBIN 14.7 GM/dL (10.7-15.3); LYMPH % 21.6 % (8-40); MCH 30.6 pg (25.7-33.7); MCHC 34.3 g/dl (32.0-36.0); MEAN CELL VOLUME 89.4 fl (80-96); MEAN PLT VOLUME 6.9 fl (7.5-11.1); MONO % 6.3 % (3.8-10.2); NEUT % 67.1 % (42.8-82.8); PLATELET COUNT 166 10^3/uL (134-434); RBC 4.81 M/mm3 (3.60-5.2); RDW 14.2 % (11.6-15.6); WHITE BLOOD COUNT 4.9 K/mm3 (4.0-10.0)
[2021-07-05 17:55] LABS: URINE APPEARANCE CLEAR; URINE BILIRUBIN NEGATIVE (NEGATIVE); URINE COLOR ORANGE; URINE GLUCOSE (UA) NEGATIVE (NEGATIVE); URINE KETONE NEGATIVE (NEGATIVE); URINE LEUK ESTERASE NEGATIVE (NEGATIVE); URINE NITRITE NEGATIVE (NEGATIVE); URINE PROTEIN NEGATIVE (NEGATIVE); URINE UROBILINOGEN 0.2 mg/dL (0.2-1.0)
[2021-07-05 18:16] LABS: CALCIUM 9.5 mg/dL (8.5-10.1)
[2021-07-05 18:17] LABS: ALBUMIN 3.8 g/dl (3.4-5.0); BLOOD UREA NITROGEN 17.8 mg/dL (7-18)
[2021-07-05 18:20] LABS: CREATININE 1.1 mg/dL (0.55-1.3)
[2021-07-05 18:21] LABS: BILIRUBIN,TOTAL 0.4 mg/dL (0.2-1)
[2021-07-05 18:22] LABS: TOT PROT 8.6 g/dl (6.4-8.2)
[2021-07-06] MEDS ORDERED: ACETAMINOPHEN 325 MG TABLET (FP) ONE (02:03)
[2021-07-06] MEDS: ACETAMINOPHEN 325 MG TABLET (FP) PO PRN ×2 (02:19→16:50)
[2021-07-06 04:15] VITALS: BMI 28.9
[2021-07-06] MEDS: HEPARIN NA (PORCINE) 5,000 UNITS/ML 1ML VIAL SQ SCH ×3 (06:40→21:26)
[2021-07-06 09:46] LABS: HEMATOCRIT 35.6 % (32.4-45.2); HEMOGLOBIN 12.3 GM/dL (10.7-15.3); MCH 30.9 pg (25.7-33.7); MCHC 34.4 g/dl (32.0-36.0); MEAN PLT VOLUME 7.3 fl (7.5-11.1); PLATELET COUNT 148 10^3/uL (134-434); RBC 3.96 M/mm3 (3.60-5.2); RDW 13.8 % (11.6-15.6); WHITE BLOOD COUNT 5.1 K/mm3 (4.0-10.0)
[2021-07-06 10:15] LABS: CALCIUM 8.9 mg/dL (8.5-10.1)
[2021-07-06 10:16] LABS: BLOOD UREA NITROGEN 18.8 mg/dL (7-18)
[2021-07-06 10:17] LABS: PHOSPHOROUS 4.4 mg/dL (2.5-4.9)
[2021-07-06 10:22] LABS: BILIRUBIN,TOTAL 0.7 mg/dL (0.2-1)
[2021-07-06] MEDS: CHOLECALCIFEROL (VIT D3) 5000 UNITS (125 MCG) CAP PO SCH (10:52)
[2021-07-06] MEDS: INSULIN SLIDING SCALE (NOVOLOG) 1 VIAL SQ SCH ×3 (10:52→21:27)
[2021-07-06] MEDS: metoPROLOL SUCCINATE 25 MG TAB.SR.24H (FP) PO SCH (10:52)
[2021-07-06] MEDS: oxyCODONE HCL 5 MG TABLET PO PRN (18:15)
[2021-07-06] MEDS: RANOLAZINE E.R. 500 MG TABLET (FP) PO SCH ×2 (21:16→21:25)
[2021-07-06] MEDS: ATORVASTATIN CA 40 MG TABLET (FP) PO SCH (21:16)
[2021-07-06] MEDS: PRAMIPEXOLE DIHYDROCHLORIDE 1.5 MG TABLET PO SCH (21:17)
[2021-07-06] MEDS: MIRTAZAPINE 30 MG TABLET PO SCH (21:17)
[2021-07-06] MEDS: DONEPEZIL HCL 10 MG TABLET (FP) PO SCH (21:17)
[2021-07-06] MEDS: MEMANTINE HCL 5 MG TABLET (UD) PO SCH (21:17)
[2021-07-06] MEDS: QUEtiapine FUMARATE 100 MG TABLET (FP) PO SCH (21:26)
[2021-07-07] MEDS: INSULIN SLIDING SCALE (NOVOLOG) 1 VIAL SQ SCH ×4 (06:15→21:42)
[2021-07-07] MEDS: HEPARIN NA (PORCINE) 5,000 UNITS/ML 1ML VIAL SQ SCH ×3 (06:17→21:39)
[2021-07-07] MEDS: PRAMIPEXOLE DIHYDROCHLORIDE 1.5 MG TABLET PO SCH ×4 (06:17→22:05)
[2021-07-07 09:03] LABS: BASO % 0.2 % (0-2.0); HEMATOCRIT 37.5 % (32.4-45.2); HEMOGLOBIN 12.7 GM/dL (10.7-15.3); LYMPH % 15.4 % (8-40); MCH 30.5 pg (25.7-33.7); MCHC 33.9 g/dl (32.0-36.0); MEAN PLT VOLUME 7.4 fl (7.5-11.1); MONO % 7.4 % (3.8-10.2); PLATELET COUNT 169 10^3/uL (134-434); RBC 4.17 M/mm3 (3.60-5.2); RDW 14.1 % (11.6-15.6); WHITE BLOOD COUNT 6.1 K/mm3 (4.0-10.0)
[2021-07-07 09:19] LABS: ALBUMIN 3.1 g/dl (3.4-5.0); BLOOD UREA NITROGEN 17.3 mg/dL (7-18); CALCIUM 8.9 mg/dL (8.5-10.1); MAGNESIUM 2.1 mg/dL (1.8-2.4)
[2021-07-07 09:22] LABS: CREATININE 1.1 mg/dL (0.55-1.3); PHOSPHOROUS 2.7 mg/dL (2.5-4.9)
[2021-07-07 09:24] LABS: BILIRUBIN,TOTAL 0.7 mg/dL (0.2-1); TOT PROT 7.5 g/dl (6.4-8.2)
[2021-07-07] MEDS ORDERED: PT OWN MED DRAWER 7, Y5N ONE ×2 (10:53→20:32)
[2021-07-07] MEDS: RANOLAZINE E.R. 500 MG TABLET (FP) PO SCH ×2 (10:58→21:43)
[2021-07-07] MEDS: metoPROLOL SUCCINATE 25 MG TAB.SR.24H (FP) PO SCH (11:02)
[2021-07-07] MEDS: CHOLECALCIFEROL (VIT D3) 5000 UNITS (125 MCG) CAP PO SCH (11:02)
[2021-07-07] MEDS: MIRTAZAPINE 30 MG TABLET PO SCH ×2 (21:39→22:08)
[2021-07-07] MEDS: ATORVASTATIN CA 40 MG TABLET (FP) PO SCH ×2 (21:39→22:05)
[2021-07-07] MEDS: MEMANTINE HCL 5 MG TABLET (UD) PO SCH ×2 (21:39→22:05)
[2021-07-07] MEDS: DONEPEZIL HCL 10 MG TABLET (FP) PO SCH ×2 (21:39→22:05)
[2021-07-07] MEDS: QUEtiapine FUMARATE 100 MG TABLET (FP) PO SCH ×2 (21:56→22:07)
[2021-07-07] MEDS ORDERED: ACETAMINOPHEN 1000 MG/100 ML VIAL IVPB ONE (22:33)
[2021-07-08] MEDS: PRAMIPEXOLE DIHYDROCHLORIDE 1.5 MG TABLET PO SCH ×2 (06:30→13:24)
[2021-07-08] MEDS: INSULIN SLIDING SCALE (NOVOLOG) 1 VIAL SQ SCH ×3 (06:51→16:57)
[2021-07-08] MEDS: HEPARIN NA (PORCINE) 5,000 UNITS/ML 1ML VIAL SQ SCH ×3 (06:52→21:48)
[2021-07-08 08:57] LABS: BASO % 0.6 % (0-2.0); EOS % 2.8 % (0-4.5); HEMATOCRIT 40.3 % (32.4-45.2); HEMOGLOBIN 13.5 GM/dL (10.7-15.3); LYMPH % 21.9 % (8-40); MCH 30.9 pg (25.7-33.7); MCHC 33.5 g/dl (32.0-36.0); MEAN CELL VOLUME 92.1 fl (80-96); MEAN PLT VOLUME 7.3 fl (7.5-11.1); MONO % 7.2 % (3.8-10.2); NEUT % 67.5 % (42.8-82.8); PLATELET COUNT 166 10^3/uL (134-434); RBC 4.38 M/mm3 (3.60-5.2); WHITE BLOOD COUNT 5.8 K/mm3 (4.0-10.0)
[2021-07-08] MEDS ORDERED: PT OWN MED DRAWER 7, Y5N ONE (09:58)
[2021-07-08 10:53] LABS: ALBUMIN 3.1 g/dl (3.4-5.0); BILIRUBIN,TOTAL 0.6 mg/dL (0.2-1); BLOOD UREA NITROGEN 17.9 mg/dL (7-18); CALCIUM 8.8 mg/dL (8.5-10.1); CREATININE 0.9 mg/dL (0.55-1.3); MAGNESIUM 2.1 mg/dL (1.8-2.4); PHOSPHOROUS 2.8 mg/dL (2.5-4.9); TOT PROT 7.5 g/dl (6.4-8.2)
[2021-07-08] MEDS: RANOLAZINE E.R. 500 MG TABLET (FP) PO SCH (11:58)
[2021-07-08] MEDS: CHOLECALCIFEROL (VIT D3) 5000 UNITS (125 MCG) CAP PO SCH (11:58)
[2021-07-08] MEDS: metoPROLOL SUCCINATE 25 MG TAB.SR.24H (FP) PO SCH (11:58)
[2021-07-08] MEDS: oxyCODONE HCL 5 MG TABLET PO PRN (12:42)
[2021-07-08] MEDS ORDERED: QUEtiapine FUMARATE 100 MG TABLET (FP) PO ONE (17:00)
[2021-07-08] MEDS: MELATONIN 1 MG TABLET PO SCH (19:14)
[2021-07-08] MEDS ORDERED: QUEtiapine FUMARATE 100 MG TABLET (FP) PO SCH ×2 (20:00)
[2021-07-08] MEDS ORDERED: KETOROLAC TROMETHAMINE 30 MG/1 ML VIAL IM ONE (20:00)
[2021-07-08] MEDS ORDERED: MELATONIN 1 MG TABLET PO PRN (21:00)
[2021-07-08] MEDS: DONEPEZIL HCL 10 MG TABLET (FP) PO SCH (21:48)
[2021-07-08] MEDS: MIRTAZAPINE 30 MG TABLET PO SCH (21:48)
[2021-07-09] MEDS: RANOLAZINE E.R. 500 MG TABLET (FP) PO SCH ×2 (00:41→10:05)
[2021-07-09] MEDS: MELATONIN 1 MG TABLET PO SCH (00:41)
[2021-07-09] MEDS: MEMANTINE HCL 5 MG TABLET (UD) PO SCH (00:41)
[2021-07-09] MEDS: PRAMIPEXOLE DIHYDROCHLORIDE 1.5 MG TABLET PO SCH ×3 (00:41→13:40)
[2021-07-09] MEDS: ATORVASTATIN CA 40 MG TABLET (FP) PO SCH (00:41)
[2021-07-09] MEDS: MIRTAZAPINE 30 MG TABLET PO SCH (00:42)
[2021-07-09] MEDS ORDERED: PT OWN MED DRAWER 7, Y5N ONE (03:41)
[2021-07-09] MEDS: HEPARIN NA (PORCINE) 5,000 UNITS/ML 1ML VIAL SQ SCH ×2 (06:01→13:39)
[2021-07-09] MEDS: INSULIN SLIDING SCALE (NOVOLOG) 1 VIAL SQ SCH ×2 (06:01→11:15)
[2021-07-09 06:13] VITALS: TEMP 98.2
[2021-07-09 09:24] LABS: BASO % 0.6 % (0-2.0); EOS % 5.1 % (0-4.5); HEMATOCRIT 35.9 % (32.4-45.2); HEMOGLOBIN 12.4 GM/dL (10.7-15.3); LYMPH % 25.3 % (8-40); MCH 30.8 pg (25.7-33.7); MCHC 34.5 g/dl (32.0-36.0); MEAN CELL VOLUME 89.2 fl (80-96); PLATELET COUNT 199 10^3/uL (134-434); RBC 4.03 M/mm3 (3.60-5.2); RDW 14.1 % (11.6-15.6); WHITE BLOOD COUNT 4.8 K/mm3 (4.0-10.0)
[2021-07-09] MEDS: metoPROLOL SUCCINATE 25 MG TAB.SR.24H (FP) PO SCH (10:02)
[2021-07-09] MEDS: CHOLECALCIFEROL (VIT D3) 5000 UNITS (125 MCG) CAP PO SCH (10:04)
[2021-07-09] MEDS: oxyCODONE HCL 5 MG TABLET PO PRN (10:58)
[2021-07-09] MEDS ORDERED: INSULIN SLIDING SCALE (NOVOLOG) 1 VIAL SQ ONE (11:15)
[2021-07-09 11:58] LABS: BILIRUBIN,TOTAL 0.5 mg/dL (0.2-1); CALCIUM 8.8 mg/dL (8.5-10.1); CREATININE 0.8 mg/dL (0.55-1.3); MAGNESIUM 2.1 mg/dL (1.8-2.4); PHOSPHOROUS 3.5 mg/dL (2.5-4.9); TOT PROT 7.1 g/dl (6.4-8.2)
[2021-07-09 12:19] VITALS: BP 126/80; PULSE 76
== END 2021-07-09 14:20 | DRG 57 ==
LOC: JER 16:03 → JERBED 18:55 → J5S 07-06 03:11
PROVIDERS: ADMIT Internal Medicine; ATTEND Internal Medicine
DX: G20 Parkinson's disease (principal); F03.91 Unspecified dementia, unspecified severity, with behavioral disturbance; E11.9 Type 2 diabetes mellitus without complications; I10 Essential (primary) hypertension; F32.A Depression, unspecified; R94.31 Abnormal electrocardiogram [ECG] [EKG]; S82.491A Other fracture of shaft of right fibula, initial encounter for closed fracture; W18.39XA Other fall on same level, initial encounter; I25.10 Atherosclerotic heart disease of native coronary artery without angina pectoris; Z95.5 Presence of coronary angioplasty implant and graft; Y92.098 Other place in other non-institutional residence as the place of occurrence of the external cause; R41.0 Disorientation, unspecified
CPT/HCPCS: 36415; 71045-TC-FY; 73502-TC-RT-FY; 73523-TC-FY; 73562-TC-RT-FY; 73610-TC-RT-FY; 73630-TC-LT; 73630-TC-RT-FY; 80053; 81003; 82306; 82550; 82962; 83735; 84100; 84484; 85025; 85027; 87086; 93005; 93010; 99285-25; C9803; J0131; J1644; U0003; U0005

== ENCOUNTER 2021-08-26 13:32 | Inpatient (IN) | payer OTHER ==
[2021-08-26 14:55] VITALS: BMI 27.5
[2021-08-26 16:50] LABS: BASO % 0.4 % (0-2.0); EOS % 5.1 % (0-4.5); HEMATOCRIT 37.8 % (32.4-45.2); HEMOGLOBIN 12.9 GM/dL (10.7-15.3); LYMPH % 35.7 % (8-40); MCH 30.1 pg (25.7-33.7); MCHC 34.1 g/dl (32.0-36.0); MEAN CELL VOLUME 88.2 fl (80-96); MEAN PLT VOLUME 7.1 fl (7.5-11.1); MONO % 7.9 % (3.8-10.2); NEUT % 50.9 % (42.8-82.8); PLATELET COUNT 212 10^3/uL (134-434); RBC 4.29 M/mm3 (3.60-5.2); RDW 14.3 % (11.6-15.6); WHITE BLOOD COUNT 4.3 K/mm3 (4.0-10.0)
[2021-08-26 17:14] LABS: CHLORIDE 104 mmol/L (98-107); SODIUM 141 mmol/L (136-145)
[2021-08-26 17:16] LABS: CALCIUM 9.1 mg/dL (8.5-10.1)
[2021-08-26 17:17] LABS: ALBUMIN 3.3 g/dl (3.4-5.0); ANION GAP 8 MMOL/L (8-16); CO2 29 mmol/L (21-32); GLUCOSE,RANDOM 110 mg/dL (74-106)
[2021-08-26 17:20] LABS: CREATININE 0.8 mg/dL (0.55-1.3); SGOT/AST 18 U/L (15-37); SGPT/ALT 20 U/L (13-61)
[2021-08-26 17:21] LABS: TOT PROT 7.4 g/dl (6.4-8.2)
[2021-08-26 17:22] LABS: BILIRUBIN,TOTAL 0.2 mg/dL (0.2-1); BLOOD UREA NITROGEN 12.7 mg/dL (7-18)
[2021-08-26 17:23] LABS: ALK PHOS 101 U/L (45-117)
[2021-08-26] MEDS ORDERED: ALBUTEROL SO4 2.5/IPRATROPIUM 0.5 INH SOL 3 ML VIAL.NEB. NEB ONE (18:01)
[2021-08-26] MEDS: ALBUTEROL SO4 2.5/IPRATROPIUM 0.5 INH SOL 3 ML VIAL.NEB. NEB SCH (18:11)
[2021-08-26 19:55] LABS: N-TERMINAL BNP 1520.7 pg/ml (5-450)
[2021-08-27 02:01] VITALS: BP 135/43; PULSE 65; TEMP 98.9
[2021-08-27] MEDS ORDERED: ENOXAPARIN NA (PORCINE) 40 MG/0.4 ML DISP.SYRIN SQ SCH (10:00)
== END 2021-08-27 02:02 | disposition home or self-care (01) | DRG 206 ==
LOC: JER 13:32 → JERBED 21:41
PROVIDERS: ADMIT Hospitalist; ATTEND Hospitalist
DX: J98.8 Other specified respiratory disorders (principal); B97.4 Respiratory syncytial virus as the cause of diseases classified elsewhere; F03.90 Unspecified dementia, unspecified severity, without behavioral disturbance, psychotic disturbance, mood disturbance, and anxiety; G20 Parkinson's disease; E11.9 Type 2 diabetes mellitus without complications; I10 Essential (primary) hypertension; K21.9 Gastro-esophageal reflux disease without esophagitis
CPT/HCPCS: 36415; 71045-TC-FY; 80053; 82550; 82728; 83605; 83880; 84484; 85025; 87804; 87807; 93005; 93010; 99285-25; C9803-CS; U0003; U0005

== ENCOUNTER 2022-09-24 16:46 | Inpatient (IN) | payer OTHER ==
[2022-09-24 17:22] VITALS: BMI 24.5
[2022-09-24] MEDS ORDERED: SODIUM CHLORIDE 0.9% 500 ML INFUS.BAG IV ONE ×2 (17:31→19:23)
[2022-09-24] MEDS ORDERED: VANCOMYCIN 1,000 MG in DEXTROSE 5%-WATER - 250 ML IVPB ONE (18:10)
[2022-09-24] MEDS ORDERED: ACETAMINOPHEN 1000 MG/100 ML BAG IVPB ONE (18:10)
[2022-09-24] MEDS ORDERED: CEFEPIME HCL/D5W 2 GM/50 ML BAG IVPB ONE ×2 (18:14→18:48)
[2022-09-24] MEDS ORDERED: ACETAMINOPHEN INJECTION 100 ML IVPB ONE (18:16)
[2022-09-24 18:25] LABS: VENOUS BASE EXCESS -0.2 mmol/L (-2-2); VENOUS O2 SATURATION 97.3 % (70-80); VENOUS PCO2 28.1 mmHg (38-52); VENOUS PH 7.504 (7.310-7.410)
[2022-09-24] MEDS ORDERED: CEFEPIME 2 GM/100 ML BAG IVPB ONE (18:25)
[2022-09-24 18:35] LABS: BASO % 0.1 % (0-2.0); EOS % 2.4 % (0-4.5); HEMATOCRIT 38.5 % (32.4-45.2); HEMOGLOBIN 13.2 GM/dL (10.7-15.3); LYMPH % 5.9 % (8-40); MCH 30.8 pg (25.7-33.7); MCHC 34.3 g/dl (32.0-36.0); MEAN CELL VOLUME 89.7 fl (80-96); MEAN PLT VOLUME 7.8 fl (7.5-11.1); MONO % 6.5 % (3.8-10.2); NEUT % 85.1 % (42.8-82.8); PLATELET COUNT 205 10^3/uL (134-434); RDW 13.2 % (11.6-15.6); WHITE BLOOD COUNT 8.2 K/mm3 (4.0-10.0)
[2022-09-24 18:43] LABS: INR 1.41 (0.83-1.09); PROTHROMBIN TIME (PATIENT) 16.3 SEC (9.7-13.0)
[2022-09-24 18:46] LABS: ACTIVATED PTT 30.2 SECONDS (25.2-36.5)
[2022-09-24 18:55] LABS: CHLORIDE 96 mmol/L (98-107); SODIUM 129 mmol/L (136-145)
[2022-09-24 18:57] LABS: ALBUMIN 3.2 g/dl (3.4-5.0); ANION GAP 9 MMOL/L (8-16); BLOOD UREA NITROGEN 22.4 mg/dL (7-18); CALCIUM 8.9 mg/dL (8.5-10.1); CO2 24 mmol/L (21-32); GLUCOSE,RANDOM 160 mg/dL (74-106)
[2022-09-24 19:00] LABS: CREATININE 1.5 mg/dL (0.55-1.3); SGOT/AST 23 U/L (15-37); SGPT/ALT 18 U/L (13-61)
[2022-09-24 19:02] LABS: BILIRUBIN,TOTAL 0.7 mg/dL (0.2-1); TOT PROT 7.2 g/dl (6.4-8.2)
[2022-09-24 19:03] LABS: ALK PHOS 88 U/L (45-117)
[2022-09-24] MEDS ORDERED: VANCOMYCIN/WATER FOR INJ (PEG) 1,000 MG/200 ML BAG IVPB ONE (19:03)
[2022-09-24 19:08] LABS: EPI CELLS 7 /uL (0-25.1); HYALINE CASTS 0 /uL (0-3.1); URINE APPEARANCE CLEAR; URINE BACTERIA 0 /uL (0-1359); URINE BILIRUBIN NEGATIVE (NEGATIVE); URINE COLOR DK YELLOW; URINE GLUCOSE (UA) NEGATIVE (NEGATIVE); URINE KETONE NEGATIVE (NEGATIVE); URINE LEUK ESTERASE TRACE (NEGATIVE); URINE NITRITE NEGATIVE (NEGATIVE); URINE PROTEIN TRACE (NEGATIVE); URINE RBC 17 /uL (0-23.9); URINE UROBILINOGEN 0.2 mg/dL (0.2-1.0); URINE WBC 2 /uL (0-25.8)
[2022-09-24 19:10] LABS: LACTIC ACID 2.6 mmol/L (0.4-2.0)
[2022-09-24] MEDS ORDERED: ASPIRIN 81 MG CHEWABLE TABLETS PO ONE (19:22)
[2022-09-24] MEDS ORDERED: ASPIRIN 81 MG CHEWABLE TABLETS ONE (20:04)
[2022-09-24] MEDS ORDERED: HEPARIN NA (PORCINE) 5,000 UNITS/ML 1ML VIAL IVPUSH ONE (22:28)
[2022-09-24] MEDS ORDERED: HEPARIN NA (PORCINE) 5,000 UNITS/ML 1ML VIAL IVPUSH PRN ×2 (22:28)
[2022-09-24] MEDS ORDERED: HEPARIN - 25,000 UNIT in SODIUM CHLORIDE 495 ML IV SCH (22:30)
[2022-09-25 04:16] LABS: CALCIUM 7.9 mg/dL (8.5-10.1); MAGNESIUM 1.9 mg/dL (1.8-2.4)
[2022-09-25 04:22] LABS: CREATININE 1.2 mg/dL (0.55-1.3)
[2022-09-25] MEDS ORDERED: MEROPENEM 1 GM in DEXTROSE 5%-WATER 100 ML IVPB SCH ×3 (05:45→07:00)
[2022-09-25] MEDS: INSULIN SLIDING SCALE (NOVOLOG) 1 VIAL SQ SCH ×4 (06:31→22:16)
[2022-09-25 07:50] LABS: BASO % 0.2 % (0-2.0); EOS % 7.7 % (0-4.5); HEMATOCRIT 35.5 % (32.4-45.2); MCH 30.5 pg (25.7-33.7); MCHC 33.7 g/dl (32.0-36.0); MEAN CELL VOLUME 90.6 fl (80-96); MONO % 7.3 % (3.8-10.2); NEUT % 73.8 % (42.8-82.8); RBC 3.92 M/mm3 (3.60-5.2); RDW 13.4 % (11.6-15.6); WHITE BLOOD COUNT 6.3 K/mm3 (4.0-10.0)
[2022-09-25] MEDS ORDERED: CEFTRIAXONE 1 GM in DEXTROSE 5%-WATER - 50 ML IVPB ONE (07:54)
[2022-09-25 08:17] LABS: BLOOD UREA NITROGEN 24.1 mg/dL (7-18); MAGNESIUM 1.8 mg/dL (1.8-2.4)
[2022-09-25 08:20] LABS: CREATININE 1.1 mg/dL (0.55-1.3); PHOSPHOROUS 2.6 mg/dL (2.5-4.9)
[2022-09-25] MEDS ORDERED: CEFTRIAXONE 1 GM in DEXTROSE 5%-WATER - 50 ML IVPB SCH (12:30)
[2022-09-25] MEDS ORDERED: PRAMIPEXOLE DIHYDROCHLORIDE 1.5 MG TABLET PO SCH (14:45)
[2022-09-25 15:57] VITALS: RESP 18
[2022-09-25] MEDS ORDERED: MELATONIN 1 MG TABLET PO SCH (22:00)
[2022-09-25] MEDS ORDERED: GABAPENTIN 400 MG CAPSULE PO SCH (22:00)
[2022-09-25] MEDS: PRAMIPEXOLE DIHYDROCHLORIDE 1.5 MG TABLET PO SCH (22:16)
[2022-09-25] MEDS: RANOLAZINE E.R. 500 MG TABLET (FP) PO SCH (22:16)
[2022-09-26] MEDS: HEPARIN NA (PORCINE) 5,000 UNITS/ML 1ML VIAL SQ SCH ×3 (05:25→13:23)
[2022-09-26] MEDS: PRAMIPEXOLE DIHYDROCHLORIDE 1.5 MG TABLET PO SCH ×2 (05:26→13:23)
[2022-09-26] MEDS: metroNIDAZOLE 250 MG TABLET PO SCH ×2 (05:26→13:23)
[2022-09-26] MEDS: INSULIN SLIDING SCALE (NOVOLOG) 1 VIAL SQ SCH ×2 (06:11→11:50)
[2022-09-26] MEDS ORDERED: sitaGLIPtin PHOSPHATE 50 MG TABLET PO SCH (07:00)
[2022-09-26 07:51] LABS: BASO % 0.3 % (0-2.0); EOS % 7.2 % (0-4.5); HEMATOCRIT 36.9 % (32.4-45.2); HEMOGLOBIN 12.5 GM/dL (10.7-15.3); LYMPH % 16.9 % (8-40); MCH 30.4 pg (25.7-33.7); MCHC 33.9 g/dl (32.0-36.0); MEAN CELL VOLUME 89.6 fl (80-96); MEAN PLT VOLUME 7.9 fl (7.5-11.1); MONO % 8.7 % (3.8-10.2); NEUT % 66.9 % (42.8-82.8); PLATELET COUNT 186 10^3/uL (134-434); RBC 4.12 M/mm3 (3.60-5.2); RDW 13.8 % (11.6-15.6); WHITE BLOOD COUNT 4.8 K/mm3 (4.0-10.0)
[2022-09-26 08:29] LABS: ALBUMIN 3.1 g/dl (3.4-5.0); CALCIUM 8.9 mg/dL (8.5-10.1)
[2022-09-26 08:30] LABS: BLOOD UREA NITROGEN 21.4 mg/dL (7-18); MAGNESIUM 1.8 mg/dL (1.8-2.4)
[2022-09-26 08:33] LABS: CREATININE 0.9 mg/dL (0.55-1.3); PHOSPHOROUS 2.2 mg/dL (2.5-4.9)
[2022-09-26 08:34] LABS: BILIRUBIN,TOTAL 0.7 mg/dL (0.2-1); TOT PROT 6.9 g/dl (6.4-8.2)
[2022-09-26] MEDS ORDERED: CEFTRIAXONE 1 GM in DEXTROSE 5%-WATER - 50 ML IVPB SCH (10:00)
[2022-09-26] MEDS ORDERED: FLUoxetine HCL 20 MG CAPSULE PO SCH (10:00)
[2022-09-26] MEDS ORDERED: LISINOPRIL 10 MG TABLET PO SCH (10:00)
[2022-09-26] MEDS ORDERED: PRAMIPEXOLE DIHYDROCHLORIDE 1.5 MG TABLET PO SCH (10:00)
[2022-09-26] MEDS: RANOLAZINE E.R. 500 MG TABLET (FP) PO SCH (10:01)
[2022-09-26 10:09] VITALS: BP 141/69; PULSE 78; TEMP 98.3
[2022-09-26] MEDS ORDERED: REPAGLINIDE 0.5 MG TABLET (FP) PO SCH (11:45)
[2022-09-27] MEDS ORDERED: CHOLECALCIFEROL (VIT D3) 5000 UNITS (125 MCG) CAP PO SCH (10:00)
[2022-09-28 16:07] LABS: MYCOPLASMA PNEUMONIAE,IG G AB 378 U/mL (0-99); MYCOPLASMA PNEUMONIAE,IGM AB <770 U/mL (0-769)
== END 2022-09-26 14:00 | disposition home or self-care (01) | DRG 177 ==
LOC: JER 16:46 → JERBED 09-25 01:01 → J4W 09-25 04:48
PROVIDERS: ADMIT Internal Medicine; ATTEND Internal Medicine
DX: J69.0 Pneumonitis due to inhalation of food and vomit (principal); G93.41 Metabolic encephalopathy; E87.1 Hypo-osmolality and hyponatremia; I24.8 Other forms of acute ischemic heart disease; I50.32 Chronic diastolic (congestive) heart failure; J98.11 Atelectasis; R65.10 Systemic inflammatory response syndrome (SIRS) of non-infectious origin without acute organ dysfunction; J84.9 Interstitial pulmonary disease, unspecified; I11.0 Hypertensive heart disease with heart failure; E78.5 Hyperlipidemia, unspecified; K21.9 Gastro-esophageal reflux disease without esophagitis; G20 Parkinson's disease; R50.9 Fever, unspecified; F03.90 Unspecified dementia, unspecified severity, without behavioral disturbance, psychotic disturbance, mood disturbance, and anxiety; E11.9 Type 2 diabetes mellitus without complications; F32.A Depression, unspecified; I25.10 Atherosclerotic heart disease of native coronary artery without angina pectoris; R41.82 Altered mental status, unspecified; R13.10 Dysphagia, unspecified; R91.1 Solitary pulmonary nodule; R29.6 Repeated falls; Z95.0 Presence of cardiac pacemaker; Z88.0 Allergy status to penicillin; Z96.641 Presence of right artificial hip joint; Z95.5 Presence of coronary angioplasty implant and graft
CPT/HCPCS: 0241U-QW; 36415; 70450-TC; 71045-TC-FY; 71250-TC; 74177-TC; 80048; 80053; 81003; 82550; 82553; 82803; 82962; 83036; 83605; 83735; 84100; 84484; 85025; 85610; 85730; 86738; 86850; 86900; 86901; 87040; 87086; 93005; 93010; 93306-TC; 99291; J1644; Q9967

== ENCOUNTER 2022-10-06 02:36 | Emergency (ER) | payer OTHER ==
[2022-10-06] MEDS ORDERED: NOREPINEPHRINE BITARTRATE 4 MG/4 ML ML IV ONE (02:44)
[2022-10-06] MEDS ORDERED: NOREPINEPHRINE BITARTRATE/D5W 8 MG/250 ML BAG IVPB ONE (02:45)
[2022-10-06 02:48] VITALS: BMI 16.9
[2022-10-06] MEDS: NOREPINEPHRINE BITARTRATE/D5W 8 MG/250 ML BAG IVPB SCH ×2 (02:48→03:06)
[2022-10-06 02:58] LABS: BASO % 0.9 % (0-2.0); EOS % 3.6 % (0-4.5); HEMATOCRIT 34.3 % (32.4-45.2); HEMOGLOBIN 10.9 GM/dL (10.7-15.3); LYMPH % 52.3 % (8-40); MCH 30.8 pg (25.7-33.7); MCHC 31.8 g/dl (32.0-36.0); MEAN PLT VOLUME 7.2 fl (7.5-11.1); MONO % 3.2 % (3.8-10.2); PLATELET COUNT 132 10^3/uL (134-434); RBC 3.54 M/mm3 (3.60-5.2); RDW 14.6 % (11.6-15.6)
[2022-10-06 03:04] LABS: INR 1.73 (0.83-1.09)
[2022-10-06] MEDS ORDERED: VASOPRESSIN 40 UNITS/100 ML BAG IV SCH (03:15)
[2022-10-06 03:23] LABS: PHOSPHOROUS 7.8 mg/dL (2.5-4.9)
[2022-10-06] MEDS ORDERED: AMIODARONE HCL 150 MG/3 ML VIAL IVPUSH ONE (03:51)
[2022-10-06] MEDS ORDERED: EPINEPHrine 1:10,000 (P-F SYR) 1 MG/10 ML DISP.SYRIN IVPUSH ONE (03:52)
[2022-10-06 04:14] LABS: CHLORIDE 106 mmol/L (98-107); SODIUM 140 mmol/L (136-145)
[2022-10-06 04:16] LABS: BLOOD UREA NITROGEN 18.2 mg/dL (7-18); CO2 16 mmol/L (21-32); GLUCOSE,RANDOM 221 mg/dL (74-106)
[2022-10-06 04:19] LABS: CREATININE 1.3 mg/dL (0.55-1.3)
[2022-10-06 04:20] LABS: SGOT/AST 51 U/L (15-37); SGPT/ALT 23 U/L (13-61)
[2022-10-06 04:21] LABS: BILIRUBIN,TOTAL 0.3 mg/dL (0.2-1); TOT PROT 5.6 g/dl (6.4-8.2)
[2022-10-06 04:22] LABS: ALK PHOS 78 U/L (45-117)
[2022-10-06 04:46] LABS: ALBUMIN 2.2 g/dl (3.4-5.0); CALCIUM 10.9 mg/dL (8.5-10.1)
[2022-10-06 04:49] VITALS: PULSE 60; TEMP 96.1
[2022-10-06 05:00] VITALS: BP 82/35; RESP 0
[2022-10-06] MEDS ORDERED: HEPARIN NA (PORCINE) 5,000 UNITS/ML 1ML VIAL SQ SCH (06:00)
[2022-10-06] MEDS ORDERED: MUPIROCIN 2% TOPICAL OINTMENT FOR DECOLONIZATION NS SCH (10:00)
[2022-10-06] MEDS ORDERED: CHLORHEXIDINE GLUCONATE 4% CLEANSER FOR DECOLONIZATION TP SCH (22:00)
== END 2022-10-06 05:36 | disposition expired ==
LOC: JER 02:36
PROC: 3E033GC Introduction of Other Therapeutic Substance into Peripheral Vein, Percutaneous Approach (ICD-10-PCS; principal; 2022-10-06)
DX: I46.9 Cardiac arrest, cause unspecified (principal)
CPT/HCPCS: 36415; 71045-TC-FY; 80053; 82550; 83605; 83735; 84100; 84484; 85025; 85610; 85730; 86850; 86900; 86901; 93005; 93010; 99285-25; J3490